=== PATIENT | male | born 1960 | race Caucasian/White ===

== ENCOUNTER 2020-11-13 16:17 | Observation (INO) ==
[2020-11-13] MEDS ORDERED: SODIUM CHLORIDE 0.9% 1000ML 1,000 ML IV ONE (17:11)
--- NOTE | 2020-11-13 17:21 | Emergency Department Note ---
Impression & Plan Acute appendicitis, Abdominal pain ED Provider Note Provider: Kale Smith MD DATE OF SERVICE: 11/13/2020 CHIEF COMPLAINT: Abdominal pain, referred HISTORY OF PRESENT ILLNESS: Patient is a 59-year-old gentleman history of BPH and bladder stones presenting here today referred by his doctor due to abdominal discomfort. Initially saw his doctor today as over the past 4 days has had some central and then more diffuse abdominal pain. States some decreased appetite initially some nausea but that is resolved. Denies fever chills. Denies chest pain or shortness of breath. States his doctor saw him today and pushed on his stomach and he had tenderness in the right lower abdomen was sent for a CT scan. Reports the CT scan showed appendicitis and sent here for further evaluation. Denies pain medication at this time and states pain is not so bad as long as he does not touch the area. Denies any trauma. States he has not eaten since 9 AM this morning. Patient denies any issues with anesthesia in the past. REVIEW OF SYSTEMS: A total of 10 review of systems was obtained and negative except as stated above in the HPI. PAST MEDICAL HISTORY: As noted above MEDICATIONS: Reviewed home medications with the patient SOCIAL HISTORY: Non-smoker, PHYSICAL EXAM: GENERAL: alert and oriented in no acute distress on stretcher Head: normocephalic and atraumatic EYES: No injection, discharge or icterus. NECK: Trachea midline. LUNGS: Airway patent. No retractions. Breath sounds clear with good air entry bilaterally. HEART: Regular rate and rhythm. No chest wall tenderness ABDOMEN: Soft some mild left-sided and upper abdominal tenderness but significant tenderness and guarding in the right lower quadrant. SKIN: Acyanotic, warm, dry, without rashes EXTREMITIES: Without swelling, tenderness or deformity NEUROLOGICAL: No focal deficits. No aphasia. No facial droop or slurred speech. EK beats per normal sinus rhythm. No PVC or PAC. No acute ST segment elevation or depression. QTC 435. Patient's laboratory studies and imaging reviewed. Differential includes Appendicitis, testicular torsion, infections, diverticulitis, UTI, obstruction, mesenteric ischemia, aortic pathology, inflammatory bowel disease, renal colic, PUD, pancreatitis, biliary pathology, hernia, volvulus, constipation, as well as other pathologies. IMPRESSION/MEDICAL DECISION MAKING: Patient presents simply as of abdominal discomfort initially central for more diffuse but significant tenderness right lower quadrant. Outpatient scan concerning for acute ascites. Basic blood work obtained. Patient declines pain medicine. Denies fever. No signs of acute kidney stones at this point on imaging or obstruction. No evidence of free air or abscess per the report. Covid testing basic labs and EKG were obtained. Low suspicion is ACS or PE. No significant right upper quadrant tenderness. Blood work without significant leukocytosis or anemia. Slight hypokalemia 3.3 noted and discussed with the patient at bedside. Believe this is incidental to his complaints today. No s ignificant transaminitis or evidence of pancreatitis based on labs. Chest x-ray appears clear. Discussed with general surgery given the CT findings and his pain and exam. Dr. Carlson from surgery was contacted and surgery team evaluate the patient bedside and consented for the OR. Per surgery recommendations Mefoxin was ordered. Negative Covid test here. Patient and his were updated at bedside. DIAGNOSIS: Acute appendicitis, abdominal pain DISPOSITION: Being evaluated by the surgery team Past Med/Surg History Medical History Hypercholesterolemia Surgical History No pertinent past surgical history Family History Father Prostate cancer Hypertension Heart disease Uncle Prostate cancer Grandmother (Paternal) Hypertension Brother Diabetes Sister Diabetes Social History Smoking Status: Never smoker Hx Alcohol Use: No Hx Substance Use: No marital status: Feels Safe at Home: Yes Allergies Allergies Allergy/AdvReac Type Severity Reaction Status Date / Time codeine AdvReac Intermediate nausea Verified 11/13/20 18:44 Home Meds Home Medications Medication Instructions Recorded Confirmed atorvastatin 40 mg PO DAILY 11/13/20 11/13/20 potassium citrate 10 meq PO BID 11/13/20 11/13/20 venlafaxine 225 mg PO DAILY 11/13/20 11/13/20 Previous Rx's Medication Instructions Recorded tamsulosin 0.4 mg capsule 0.4 mg PO DAILY #90 cap 08/21/20 Results & Data (ED) Vital Signs Vital Signs - 24 hr 11/13/20 16:30 Temperature 36.8 C Temperature Source Temporal Artery Scan Pulse Rate 74 Pulse Rhythm Regular Respiratory Rate 17 Respiratory Effort / Characteristics Non-Labored Spontaneous Respiratory Depth Normal Blood Pressure 148/99 H Blood Pressure Mean 115 Pulse Oximetry 97 Oxygen Delivery Method Room Air Sepsis Recent Fever Within 48 Hours No Sepsis New/Unexplained Change in Mental Status No Sepsis Action Taken by Nursing No Action Required Laboratory Data Result diagrams: 11/13/20 17:20 11/13/20 17:20 Lab Results 11/13/20 11/13/20 11/13/20 Range/Units 17:20 17:20 17:20 WBC 7.44 (4.8-10.8) K/uL RBC 5.36 (4.7-6.1) M/uL Hgb 16.6 (14.0-18.0) g/dL Hct 48.1 (42-52) % MCV 89.7 (80-100) fL MCH 31.0 (25-34) pg MCHC 34.5 (32-36) g/dL RDW Std Deviation 39.4 (36.4-46.3) fL RDW Coeff of Ling 12.1 (11.5-14.5) % Plt Count 271 (130-400) K/uL MPV 10.1 (7.4-10.4) fL Immature Gran % (Auto) 0.3 % Neut % (Auto) 41.0 % Lymph % (Auto) 46.8 % Rush % (Auto) 8.9 % Eos % (Auto) 2.6 % Baso % (Auto) 0.4 % Neut # (Auto) 3.06 (1.4-6.5) K/uL Lymph # (Auto) 3.48 H (1.2-3.4) K/uL Rush # (Auto) 0.66 H (0.11-0.59) K/uL Eos # (Auto) 0.19 (0-0.5) K/uL Baso # (Auto) 0.03 (0-0.2) K/uL Immature Gran # (Auto) 0.02 (0.00-0.02) K/uL PT 10.3 (9.0-12.0) Seconds INR 1.0 (0.9-1.1) APTT 27.8 (21.0-31.0) Seconds PTT Ratio 1.1 Sodium 138 (136-145) mmol/L Potassium 3.3 L (3.5-5.1) mmol/L Chloride 103 (98-107) mmol/L Carbon Dioxide 28 (21-32) mmol/L Anion Gap 7.0 (3-11) BUN 13 (7-18) mg/dl Creatinine 1.06 (0.6-1.4) mg/dl Est Cr Clr Drug Dosing 84.5 ml/min Est GFR ( Amer) 87.4 ml/min Est GFR (Non-Af Amer) 75.4 ml/min BUN/Creatinine Ratio 12.3 (10-20) Glucose 74 (70-99) mg/dl Calcium 9.5 (8.5-10.1) mg/dl Total Bilirubin 0.6 (0.2-1) mg/dl AST 17 (15-37) U/L ALT 52 (12-78) U/L Alkaline Phosphatase 134 H (45-117) U/L Total Protein 8.0 (6.4-8.2) gm/dl Albumin 4.1 (3.4-5.0) gm/dl Globulin 3.9 (2.5-4.0) gm/dl Albumin/Globulin Ratio 1.0 (0.9-2) Lipase 145 (73-393) U/L COVID-19 Eval Order SARS-CoV-2 (PCR) (Negative) 11/13/20 11/13/20 Range/Units 17:20 17:20 WBC (4.8-10.8) K/uL RBC (4.7-6.1) M/uL Hgb (14.0-18.0) g/dL Hct (42-52) % MCV (80-100) fL MCH (25-34) pg MCHC (32-36) g/dL RDW Std Deviation (36.4-46.3) fL RDW Coeff of Ling (11.5-14.5) % Plt Count (130-400) K/uL MPV (7.4-10.4) fL Immature Gran % (Auto) % Neut % (Auto) % Lymph % (Auto) % Rush % (Auto) % Eos % (Auto) % Baso % (Auto) % Neut # (Auto) (1.4-6.5) K/uL Lymph # (Auto) (1.2-3.4) K/uL Rush # (Auto) (0.11-0.59) K/uL Eos # (Auto) (0-0.5) K/uL Baso # (Auto) (0-0.2) K/uL Immature Gran # (Auto) (0.00-0.02) K/uL PT (9.0-12.0) Seconds INR (0.9-1.1) APTT (21.0-31.0) Seconds PTT Ratio Sodium (136-145) mmol/L Potassium (3.5-5.1) mmol/L Chloride (98-107) mmol/L Carbon Dioxide (21-32) mmol/L Anion Gap (3-11) BUN (7-18) mg/dl Creatinine (0.6-1.4) mg/dl Est Cr Clr Drug Dosing ml/min Est GFR ( Amer) ml/min Est GFR (Non-Af Amer) ml/min BUN/Creatinine Ratio (10-20) Glucose (70-99) mg/dl Calcium (8.5-10.1) mg/dl Total Bilirubin (0.2-1) mg/dl AST (15-37) U/L ALT (12-78) U/L Alkaline Phosphatase (45-117) U/L Total Protein (6.4-8.2) gm/dl Albumin (3.4-5.0) gm/dl Globulin (2.5-4.0) gm/dl Albumin/Globulin Ratio (0.9-2) Lipase (73-393) U/L COVID-19 Eval Order Covid19 at [facility] SARS-CoV-2 (PCR) NEGATIVE (Negative) Administered Medications Cefoxitin Sodium (Mefoxin) 2,000 mg in 60 mls @ 100 mls/hr IV NOW STA Stop: 11/13/20 19:13 Last Admin: 11/13/20 18:54 Dose: 100 mls/hr Documented by: [id number] Discontinued Medications Sodium Chloride (Nss 1000ml) 1,000 mls @ 999 mls/hr IV .Q1H1M ONE Stop: 11/13/20 18:11 Last Infusion: 11/13/20 18:55 Dose: 0 mls/hr Documented by: [id number] Admin: 11/13/20 17:26 Dose: 999 mls/hr Documented by: [id number] Imaging Data Radiologist's Impression: Chest X-Ray 11/13/20 17:24 XR chest 1V portable HISTORY: Generalized abdominal pain. COMPARISON: Chest 04/24/2014. FINDINGS: The lungs are clear. Cardiac silhouette is normal in size. No pleural effusions. No pneumothorax. IMPRESSION: No acute process. ACT 112: Negative or not required by law. Electronically signed by: Gerald Curry M.D. 11/13/2020 6:07 PM Discharge Plan Visit Data Chief Complaint: Abdominal Pain Stated Complaint: R SIDE ADB PAIN- + CT SCAN PER DOC [facility] ED Provider: Kale Smith Discharge Problem: Acute appendicitis, Abdominal pain Patient Disposition: Being Evaluated by Surgeon Forms Stand Alone Forms: [employer] Prescriptions Prescriptions: No Action tamsulosin 0.4 mg capsule 0.4 mg PO DAILY Qty: 90 RF: 3 atorvastatin 40 mg tablet 40 mg PO DAILY RF: 0 venlafaxine 75 mg capsule,extended release 24hr 225 mg PO DAILY RF: 0 potassium citrate 10 mEq (1,080 mg) tablet extended release 10 meq PO BID RF: 0 Referrals Referrals: Harjeet Peralta MD [Primary Care Provider] - Discharge Problem: Acute appendicitis Qualifiers: Acute appendicitis type: with localized peritonitis Appendicitis gangrene prese nce: unspecified whether gangrene present Appendicitis perforation presence: without perforation Appendicitis abscess presence: without abscess Qualified Code(s): K35.30 - Acute appendicitis with localized peritonitis, without perforation or gangrene Abdominal pain Qualifiers: Abdominal location: right lower quadrant Qualified Code(s): R10.31 - Right lower quadrant pain
[2020-11-13 17:45] LABS: Basophils # (auto) 0.03 K/uL (0-0.2); Basophils % (auto) 0.4 %; Eosinophils # (auto) 0.19 K/uL (0-0.5); Eosinophils % (auto) 2.6 %; Hematocrit (blood only) 48.1 % (42-52); Hemoglobin 16.6 g/dL (14.0-18.0); Immature Granulocytes # (auto) 0.02 K/uL (0.00-0.02); Immature Granulocytes % (auto) 0.3 %; Lymphocytes # (auto) 3.48 K/uL (1.2-3.4); Lymphocytes % (auto) 46.8 %; Mean Corpuscular Hgb Conc 34.5 g/dL (32-36); Mean Corpuscular Volume 89.7 fL (80-100); Mean Platelet Volume 10.1 fL (7.4-10.4); Monocytes # (auto) 0.66 K/uL (0.11-0.59); Monocytes % (auto) 8.9 %; Neutrophils # (auto) 3.06 K/uL (1.4-6.5); Platelet Count 271 K/uL (130-400); RDW Coefficient of Variation 12.1 % (11.5-14.5); RDW Standard Deviation 39.4 fL (36.4-46.3); Red Blood Count 5.36 M/uL (4.7-6.1); White Blood Count 7.44 K/uL (4.8-10.8)
[2020-11-13 18:04] LABS: Partial Thromboplastin Ratio 1.1; Partial Thromboplastin Time 27.8 Seconds (21.0-31.0); Prothrombin Time 10.3 Seconds (9.0-12.0)
[2020-11-13 18:06] LABS: Albumin Level 4.1 gm/dl (3.4-5.0); BUN Creatinine Ratio 12.3 (10-20); Calcium 9.5 mg/dl (8.5-10.1); Creatinine Clr Calc Pharmacy 84.5 ml/min; Est GFR (African American) 87.4 ml/min; Est GFR (Non-African American) 75.4 ml/min; Potassium 3.3 mmol/L (3.5-5.1)
--- NOTE | 2020-11-13 18:08 | XRay Report ---
XR chest 1V portable HISTORY: Generalized abdominal pain. COMPARISON: Chest 04/24/2014. FINDINGS: The lungs are clear. Cardiac silhouette is normal in size. No pleural effusions. No pneumot horax. IMPRESSION: No acute process. ACT 112: Negative or not required by law. Electronically signed by: Gerald Curry M.D. 11/13/2020 6:07 PM
[2020-11-13 18:09] LABS: Bilirubin,Total 0.6 mg/dl (0.2-1); Globulin 3.9 gm/dl (2.5-4.0)
[2020-11-13] MEDS ORDERED: cefOXitin 2,000 MG/60 ML BAG IV STA (18:38)
[2020-11-13] MEDS ORDERED: EPINEPHrine INJ 1 MG/ML AMP ONE (18:55)
[2020-11-13] MEDS ORDERED: BUPIVACAINE 0.25% 30 ML VIAL ONE (18:55)
--- NOTE | 2020-11-13 19:16 | History & Physical Report ---
Date of Service November 13, 2020 Assessment & Plan (1) Acute appendicitis: Due to the patient's appendicitis we will proceed as follows: We will proceed with laparoscopic, possible open appendectomy this evening. I have discussed the risks, benefits, and alternatives with the patient and is dangelo ling to proceed. Informed consent has been obtained. The patient has received antibiotics in the form of cefoxitin. We will keep the patient n.p.o. until after surgery General recommendations will be made based on the patient's operative findings as well as recovery from said surgery History of Present Illness Chief Complaint: Abdominal pain Primary Care Provider: Harjeet Peralta MD This 59-year-old male who says he has been having abdominal pain in his lower abdomen for approximately 4 to 5 days. He says the pain does not have any modifying factors and does not radiate. He has not had any associated nausea vomiting. He has not had any fevers, shakes, or chills. He has never had any prior abdominal surgeries. He felt as though his pain was due to constipation so he attempted to alter his diet by eating more fruits and vegetables but this was unsuccessful at relieving the pain. As the pain persisted he saw his primary care physician today who ordered a CAT scan that showed findings concerning for an early appendicitis and he was therefore referred to the emergency department. The emergency department the patient did have labs performed which I independently reviewed. CBC revealed his white blood cell count, hemoglobin, he matocrit, and platelet count are all within normal range. Coagulation studies were all noted to be normal. The patient's sodium was 138. His potassium was 3.3. BUN and creatinine were noted to be within normal range. A Covid test was performed and was noted to be negative. Patient also had a chest x-ray which I did telemetry reviewed and showed no evidence of CHF or pneumonia. He also had an outpatient CT scan that was previously mentioned. I independently reviewed the study as well. The study did show no evidence of bowel obstruction or free air. There was enlargement of his appendix with a diameter of approximately 11mm. This was felt to be suspicious for an early appendicitis. There is no evidence of perforation. In addition the patient did have an EKG that showed normal sinus rhythm without changes indicative of ischemia. I did question patient about his daily activities and he says that he can easily walk a mile without any chest pain or shortness of breath. He is lifetime non- smoker. At the time of my interview the patient was resting comfortably in bed in minimal pain in no distress. Allergies Allergy/AdvReac Type Severity Reaction Status Date / Time codeine AdvReac Intermediate nausea Verified 11/13/20 18:44 Home Medications Medication Instructions Recorded Confirmed Type tamsulosin 0.4 mg capsule 0.4 mg PO DAILY #90 cap 08/21/20 11/13/20 Rx atorvastatin 40 mg PO DAILY 11/13/20 11/13/20 History potassium citrate 10 meq PO BID 11/13/20 11/13/20 History venlafaxine 225 mg PO DAILY 11/13/20 11/13/20 History Past Med/Surg History Medical History Hypercholesterolemia Surgical History No pertinent past surgical history Family History Father Prostate cancer Hypertension Heart disease Uncle Prostate cancer Grandmother (Paternal) Hypertension Brother Diabetes Sister Diabetes Social History Smoking Status: Never smoker Hx Alcohol Use: No Hx Substance Use: No marital status: Feels Safe at Home: Yes Review of Systems Constitutional: no fever and no chills Eyes: no diplopia Ear, Nose, Mouth, Throat: no ear pain Respiratory: no cough and no dyspnea Cardiovascular: no chest pain Gastrointestinal: + abdominal pain; no nausea and no vomiting Genitourinary: no dysuria Musculoskeletal: no back pain Integumentary: no rash Neurologic: no generalized weakness Physical Exam Constitutional: well developed and well nourished; no acute distress Eyes: Wears glasses ENMT: Ears: no hearing impairment Neck: trachea midline Respiratory: normal respiratory effort, lungs clear to auscultation Cardiovascular: Rate/Rhythm: regular rate and regular rhythm Gastrointestinal (Abdomen): Abdomen is soft with positive bowel sounds. There is no rebound tenderness or guarding. The patient did have pain with deep palpation in the right lower quadrant over McBurney's point. Musculoskeletal: No calf tenderness Skin: no rashes, warm and dry Neurologic: moves all extremities Psychiatric: A+Ox3, euthymic affect Results & Data Results & Data ([facility]) Vital Signs (Past 12 Hours) Vital Signs Temp Pulse Resp BP Pulse Ox 11/13/20 16:30 36.8 C 74 17 148/99 H 97 Supervising Physician Co-Signing Physician Notes I personally saw and evaluated the patient with Amadeo Escobar PA-C and agree with the assessment and plan 59 yo male with acute appendicitis -NPO -Mefoxin -To OR tonight for laparoscopic appendectomy, possible open -Consent obtained, risks discussed including bleeding, infection, leak, injury to nearby structures, abscess PG Care Time/CCT Total # of Minutes Spent Total Time Spent with Patient: Total time spent is greater than 50% in coordination of care (as documented) at patient's floor/unit and/or counseling patient: Coding Level of Care Code 77303 OBS Care - Level 3 Diagnoses Acute appendicitis K35.30 Acute appendicitis type: with localized peritonitis Appendicitis abscess presence: without abscess Appendicitis gangrene presence: unspecified whether gangrene present Appendicitis perforation presence: without perforation (1) Acute appendicitis Acute appendicitis type: with localized peritonitis Appendicitis abscess presence: without abscess Appendicitis gangrene presence: unspecified whether gangrene present Appendicitis perforation presence: without perforation Qualified Code(s): K35.30 - Acute appendicitis with localized peritonitis, without perforation or gangrene
--- NOTE | 2020-11-13 19:20 | Anesthesiology Consultation ---
Date of Service November 13, 2020 Assessment & Plan Chart Review Chart Review: Acceptable Risk for Surgery and Patient NOT seen in Pre Admission Testing Consults Requested none ASA [id number] Proposed Anesthesia Anesthesia Type: General History Surgery Operation Date: 11/13/20 19:45 Proposed Procedures p Laparoscopic Appendectomy, Possible Open(Not Applicable) - Antolin Carlson, Height/Weight Height: 5 ft 10 in Weight: 94.6 kg Allergies Allergy/AdvReac Type Severity Reaction Status Date / Time codeine AdvReac Intermediate nausea Verified 11/13/20 18:44 Medications Home Medications Medication Instructions Recorded Confirmed Last Taken tamsulosin 0.4 mg capsule 0.4 mg PO DAILY #90 cap 08/21/20 11/13/20 11/13/20 atorvastatin 40 mg PO DAILY 11/13/20 11/13/20 11/13/20 potassium citrate 10 meq PO BID 11/13/20 11/13/20 11/13/20 08:00 venlafaxine 225 mg PO DAILY 11/13/20 11/13/20 11/13/20 08:00 Past Medical History Medical History Hypercholesterolemia Exercise / Class Metabolic Activity II 4-5 Yardwork/Stairs/Walk up hill Past Family History Family History Father Prostate cancer Hypertension Heart disease Uncle Prostate cancer Grandmother (Paternal) Hypertension Brother Diabetes Sister Diabetes Past Surgical History Surgical History No pertinent past surgical history Past Anesthesia History No Hx of Anesthesia Complications and No Family Hx of Anesthesia Complications History of PONV No Hx of PONV and No Hx of Motion Sickness Social History Smoking Status: Never smoker Hx Alcohol Use: No Hx Substance Use: No Physical Exam Vital Signs Last Vital Signs Temp 36.8 C 11/13/20 16:30 Pulse 74 11/13/20 16:30 Resp 17 11/13/20 16:30 BP 148/99 H 11/13/20 16:30 Pulse Ox 97 11/13/20 16:30 Testing Laboratory Results 11/13/20 17:20 11/13/20 17:20 PT 10.3 Seconds (9.0-12.0) 11/13/20 17:20 INR 1.0 (0.9-1.1) 11/13/20 17:20 APTT 27.8 Seconds (21.0-31.0) 11/13/20 17:20 Chest X-Ray Date: 11/13/20 Findings: + NAD Echocardiogram Date: 04/24/14 EF: 55-60% LV Function: normal RWMA: + none Other Findings: + LVH (mild) and + diastolic dysfunction (grade 1) Valvular Disease: + no significant valvular disease Other Testing 04/24/14-carotid U/S-minimal plaque
[2020-11-13] MEDS ORDERED: PROPOFOL IV EMULSION 10 MG/ML 20 ML VIAL IV ONE (20:20)
[2020-11-13] MEDS ORDERED: fentaNYL citrate 100 MCG/2 ML VIAL ONE ×2 (20:22)
[2020-11-13] MEDS ORDERED: SUCCINYLCHOLINE 100MG/5ML SYR IV ONE (20:22)
[2020-11-13] MEDS ORDERED: MIDAZOLAM HCL 1 MG/ML 2ML VIAL ONE (20:23)
[2020-11-13] MEDS ORDERED: BACITRACIN OINT 15 GM TUBE ONE (20:58)
--- NOTE | 2020-11-13 21:18 | Post Operative Brief Note ---
PG Immediate Post Op with CF Date of Surgery November 13, 2020 Pre & Post Diagnosis Operation Date: 11/13/20 19:45 Pre-Op Diagnosis: Acute appendicitis Post-Op Diagnosis: Acute non perforated appendicitis I identified the patient and participated in the time-out.: Yes Procedure Operation Date: 11/13/20 19:45 Actual Procedures p Laparoscopic Appendectomy, Possible Open(Not Applicable) - Antolin Carlson DO Surgeon Antolin Carlson DO Blood Collector Amadeo Escobar PA-C Estimated Blood Loss 5 Findings Consistent with Post-Op Diagnosis Specimens Specimen Description: A. Appendix Drains Patrick Catheter (Inserted by Marito Escobar without difficulty at 2039 with a 16fr, 10cc patrick.) Anesthesia Type General Complications none Disposition Disposition: Recovery Room
[2020-11-13] MEDS ORDERED: GLYCOPYRROLATE 0.2 MG/ML VIAL ONE (21:20)
--- NOTE | 2020-11-13 21:21 | Operative Report ---
PG Post Operative Report Pre & Post Diagnosis Operation Date: 11/13/20 19:45 Pre-Op Diagnosis: Acute appendicitis Post-Op Diagnosis: Acute non perforated appendicitis I identified the patient and participated in the time-out.: Yes Procedure Operation Date: 11/13/20 19:45 Actual Procedures p Laparoscopic Appendectomy, Possible Open(Not Applicable) - Antolin Carlson DO Surgeon Antolin Carlson DO Production Packager Amadeo Escobar PA-C Estimated Blood Loss 5 Findings Consistent with Post-Op Diagnosis Nonperforated appendicitis Specimens Appendix to pathology Drains None Anesthesia Type General Complications none Disposition Disposition: Recovery Room Indications 59 yo male with acute appendicitis Description of Procedure The patient was brought to the OR and placed in the supine position and SCD's placed. At this time he underwent general endotracheal anesthesia without incident. At this time a Schwartz catheter was placed under sterile conditions. His abdomen was prepped and draped in the usual sterile fashion. He was given appropriate pre-operative antibiotics. A timeout was called, the procedure was verified as Laparoscopic appendectomy, possible open. Surgical, anesthesia and nursing teams agreed and the procedure was begun. After injection of 0.25% Marcaine with epinephrine, a supraumbilical incision was made using a #11 blade scalpel and carried down to the fascia with a hemostat. The abdomen was then elevated with towel clamps and entered using the Veress needle confirming pos ition using the saline drop test. Pneumoperitoneum was established and 5mm trocar was placed. Laparoscope was introduced. No injury was seen from our entrance to the abdomen. At this time a 5mm suprapubic port and 12mm LLQ port were placed under direct visualization. The patient was placed in Trendelenburg and rotated to the left. At this time the appendix was visualized and the tip was freed and elevated toward the abdominal wall. The appendix appeared inflamed, dilated and edematous. A window was created in the mesoappendix at the base of the appendix. A 45mm purple load stapler was then fired across the base of the appendix which appeared healthy. The mesoappendix was then taken using Harmonic device. The appendix was then placed in an Endocatch bag and removed through the LLQ port site. Staple line was inspected and was intact. Hemostasis was complete. The 12 mm port was then closed at the fascial level using a 0 Vicryl suture using the suture passer. All ports were removed under direct visualization and no bleeding was noted. The abdomen was desufflated and the skin was closed using 4-0 Monocryl in a subcuticular fashion. Sterile dressings were applied. Schwartz catheter was removed. The patient was then awakened from anesthesia having remained stable throughout the entire case and transported to PACU. All needle and sponge counts were correct x 2. The physician's assistant bookkeeper was present and scrubbed throughout the entire case. He was essential in positioning, prepping and draping the patient, driving the laparoscope, retraction and exposure, closure of the incision and placement of the dressings. I attest to the content of the Intraoperative Record and any orders documented therein. Any exceptions are noted below.
[2020-11-13] MEDS ORDERED: DEXAMETHASONE SOD INJ 4 MG/ML VIAL ONE (21:24)
[2020-11-13] MEDS ORDERED: ONDANSETRON INJ 2 MG/ML 2 ML VIAL ONE (21:25)
[2020-11-13] MEDS ORDERED: NEOSTIGMINE METHYLSULFATE 1 MG/ML 10ML VIAL ONE (21:35)
[2020-11-13] MEDS ORDERED: HYDROmorphone INJ 1 MG/ML SYRINGE IV PRN (21:43)
[2020-11-13] MEDS ORDERED: NALOXONE HCL 0.4 MG/1 ML VIAL/CARP IV PRN (21:43)
[2020-11-13] MEDS ORDERED: PROMETHAZINE HCL 12.5 MG in SODIUM CHLORIDE 0.9% 50 ML IV PRN (21:43)
[2020-11-13] MEDS ORDERED: ATROPINE SULFATE 0.1 MG/ML 10ML SYR IV PRN (21:43)
[2020-11-13] MEDS ORDERED: ePHEDrine sulfate 50 MG/ML AMP IV PRN (21:43)
[2020-11-13] MEDS ORDERED: ONDANSETRON INJ 2 MG/ML 2 ML VIAL IV PRN ×2 (21:43→23:26)
[2020-11-13] MEDS ORDERED: FLUMAZENIL 0.1 MG/1 ML 10 ML VIAL IV PRN (21:43)
[2020-11-13] MEDS ORDERED: LABETALOL HCL IV 5 MG/ML 20ML IV PRN (21:43)
[2020-11-13] MEDS ORDERED: fentaNYL citrate 100 MCG/2 ML VIAL IV PRN (21:43)
[2020-11-13] MEDS ORDERED: KETOROLAC 30 MG/ML VIAL IV PRN (21:43)
[2020-11-13] MEDS ORDERED: KETOROLAC 30 MG/ML VIAL ONE (21:49)
--- NOTE | 2020-11-13 22:11 | Anesthesiology Progress Note ---
Date of Service November 13, 2020 Anesthesia Post Procedure Vital Signs Vital Signs: Temp Pulse Pulse Pulse Resp BP BP 11/13/20 22:00 57 L 15 119/79 11/13/20 21:50 57 L 16 136/82 11/13/20 21:40 36.2 C L 59 L 15 133/84 11/13/20 19:35 36.4 C L 66 18 139/91 11/13/20 16:30 36.8 C 74 17 148/99 H Pulse Ox 11/13/20 22:00 95 11/13/20 21:50 100 11/13/20 21:40 100 11/13/20 19:35 97 11/13/20 16:30 97 Pain Intensity Abdomen: Pain Intensity: 3 Transfer of Care Handoff Completed per policy Notes Mental Status: alert / awake / arousable Patient Amnestic to Procedure: Yes Nausea / Vomiting: adequately controlled Pain: adequately controlled Airway Patency, RR, SpO2: stable & adequate BP & HR: stable & adequate Hydration State: stable & adequate Anesthetic Complications: no major complications apparent
[2020-11-13] MEDS ORDERED: MoRPHine SULFATE 4 MG/ML 1 ML CARP\\VIAL IV PRN (23:26)
[2020-11-14] MEDS: ACETAMINOPHEN 1,000 MG/100 ML VIAL IV SCH ×3 (00:30→16:44)
[2020-11-14] MEDS: LACTATED RINGER'S 1,000 ML IV SCH ×2 (00:30→19:50)
[2020-11-14] MEDS ORDERED: SODIUM CHLORIDE 0.9% 1000ML 250 ML IV ONE (06:28)
--- NOTE | 2020-11-14 06:49 | Communication Note ---
Date of Service: November 14, 2020 Notified by RN that upon sitting up pt. had some lightheadedness. He was noted to be hypotensive with BP in 70s. Repeat BP revealed BP was in 90s. HR noted to be 116. RN noted that symptoms resolved after a few minutes. She notes pt. had a uneventful night. As pt. has not had much in the way of oral intake his hypotension, tachycardia, and symptoms may be due to hypovolemia. Rashawn order a 250 cc bolus of NSS and check CBC this am.
[2020-11-14 07:12] LABS: Hematocrit (blood only) 35.9 % (42-52); Hemoglobin 12.4 g/dL (14.0-18.0); Immature Granulocytes # (auto) 0.01 K/uL (0.00-0.02); Immature Granulocytes % (auto) 0.1 %; Mean Corpuscular Hemoglobin 30.5 pg (25-34); Mean Corpuscular Hgb Conc 34.5 g/dL (32-36); Mean Corpuscular Volume 88.2 fL (80-100); Monocytes # (auto) 0.27 K/uL (0.11-0.59); Monocytes % (auto) 3.9 %; Neutrophils # (auto) 6.02 K/uL (1.4-6.5); Platelet Count 231 K/uL (130-400); RDW Coefficient of Variation 11.9 % (11.5-14.5); RDW Standard Deviation 38.2 fL (36.4-46.3); Red Blood Count 4.07 M/uL (4.7-6.1)
--- NOTE | 2020-11-14 07:49 | Surgery Progress Note ---
Date of Service November 14, 2020 Assessment & Plan (1) S/P laparoscopic appendectomy: -Hgb is 12.4, will continue IVF and repeat CBC at 1PM -Keep on clears -Will monitor CBC and his hypovolemic symptoms, order 1L NSS bolus Admission and Anticipated Discharge Date Admission Date: November 13, 2020 Subjective Pt seen and examined. Had a hypotensive episode overnight. Was tachycardic to 116. No N/V. Pain controlled. Physical Exam Constitutional: well developed; not ill appearing Gastrointestinal (Abdomen): Inspection/Auscultation: abdomen not distended Percussion/Palpation: + abdomen tender (appropriately TTP) and abdomen soft; no guarding Dressings c/d/i Results & Data ([facility]) Vital Signs (Past 12 Hours) Vital Signs Temp Pulse Pulse Resp BP BP Pulse Ox 11/14/20 07:13 36.5 C 102 H 16 95/67 L 98 11/14/20 06:30 99 H 90/65 L 11/14/20 06:27 36.4 C L 104 H 16 77/57 L 86/63 L 94 11/14/20 01:50 36.3 C L 85 15 105/70 93 11/14/20 00:54 36.3 C L 80 15 107/70 93 11/13/20 23:45 36.5 C 68 15 109/69 93 11/13/20 23:15 36.4 C L 67 16 113/70 94 11/13/20 22:45 36.5 C 58 L 16 121/77 96 11/13/20 22:20 58 L 15 121/73 95 11/13/20 22:10 36.2 C L 58 L 18 114/77 95 11/13/20 22:00 57 L 15 119/79 95 11/13/20 21:50 57 L 16 136/82 100 11/13/20 21:40 36.2 C L 59 L 15 133/84 100 Hgb 12.4 down from 16.6 PG Care Time/CCT Total # of Minutes Spent Total Time Spent with Patient: Total time spent is greater than 50% in coordination of care (as documented) at patient's floor/unit and/or counseling patient: Coding Level of Care Code None Diagnoses S/P laparoscopic appendectomy Z90.49
[2020-11-14] MEDS ORDERED: SODIUM CHLORIDE 0.9% 1000ML 1,000 ML IV ONE (07:50)
[2020-11-14] MEDS: oxyCODONE HCL SOLN 5 MG/5 ML UDC PO PRN ×2 (09:11→17:22)
[2020-11-14] MEDS: TAMSULOSIN HCL 0.4 MG CAP PO SCH ×2 (09:12→10:45)
[2020-11-14] MEDS: ATORVASTATIN 40 MG TAB PO SCH (09:12)
[2020-11-14] MEDS: POTASSIUM CITRATE 10 MEQ TAB PO SCH ×2 (09:12→19:49)
[2020-11-14] MEDS: VENLAFAXINE HCL XR 75 MG CAPXR PO SCH (09:12)
[2020-11-14] MEDS ORDERED: Nursing to Pharmacy Communication SCH (10:45)
[2020-11-14 13:27] LABS: Hematocrit (blood only) 34.9 % (42-52); Hemoglobin 11.8 g/dL (14.0-18.0); Immature Granulocytes # (auto) 0.02 K/uL (0.00-0.02); Immature Granulocytes % (auto) 0.2 %; Lymphocytes # (auto) 1.15 K/uL (1.2-3.4); Lymphocytes % (auto) 12.6 %; Mean Corpuscular Hemoglobin 30.1 pg (25-34); Mean Corpuscular Hgb Conc 33.8 g/dL (32-36); Mean Platelet Volume 10.2 fL (7.4-10.4); Monocytes # (auto) 0.56 K/uL (0.11-0.59); Monocytes % (auto) 6.1 %; Neutrophils # (auto) 7.38 K/uL (1.4-6.5); Neutrophils % (auto) 81.1 %; Platelet Count 256 K/uL (130-400); RDW Coefficient of Variation 12.2 % (11.5-14.5); Red Blood Count 3.92 M/uL (4.7-6.1); White Blood Count 9.11 K/uL (4.8-10.8)
[2020-11-14] MEDS ORDERED: diazePAM 2 MG TABLET PO ONE (13:45)
[2020-11-14] MEDS ORDERED: TAMSULOSIN HCL 0.4 MG CAP PO SCH (21:00)
[2020-11-15 06:39] LABS: Basophils # (auto) 0.01 K/uL (0-0.2); Basophils % (auto) 0.1 %; Eosinophils # (auto) 0.02 K/uL (0-0.5); Eosinophils % (auto) 0.2 %; Hematocrit (blood only) 28.4 % (42-52); Hemoglobin 9.5 g/dL (14.0-18.0); Immature Granulocytes # (auto) 0.02 K/uL (0.00-0.02); Immature Granulocytes % (auto) 0.2 %; Lymphocytes # (auto) 1.48 K/uL (1.2-3.4); Lymphocytes % (auto) 14.7 %; Mean Corpuscular Hemoglobin 30.1 pg (25-34); Mean Corpuscular Hgb Conc 33.5 g/dL (32-36); Mean Corpuscular Volume 89.9 fL (80-100); Monocytes # (auto) 0.96 K/uL (0.11-0.59); Monocytes % (auto) 9.5 %; Neutrophils # (auto) 7.58 K/uL (1.4-6.5); Neutrophils % (auto) 75.3 %; Platelet Count 201 K/uL (130-400); RDW Coefficient of Variation 12.2 % (11.5-14.5); RDW Standard Deviation 39.5 fL (36.4-46.3); Red Blood Count 3.16 M/uL (4.7-6.1); White Blood Count 10.07 K/uL (4.8-10.8)
[2020-11-15] MEDS: LACTATED RINGER'S 1,000 ML IV SCH (08:52)
[2020-11-15] MEDS: ATORVASTATIN 40 MG TAB PO SCH (08:59)
[2020-11-15] MEDS: POTASSIUM CITRATE 10 MEQ TAB PO SCH (08:59)
[2020-11-15] MEDS: VENLAFAXINE HCL XR 75 MG CAPXR PO SCH (08:59)
--- NOTE | 2020-11-15 10:39 | Surgery Progress Note ---
Date of Service November 15, 2020 Assessment & Plan (1) S/P laparoscopic appendectomy: POD#2 laparoscopic appendectomy Hbg today 9.5 (11.8), today's VSS Patient overall feeling better than yesterday so far; tolerating a diet, + gas Will continue to monitor Hbg and obtain a T&S to have on file Continue current management for now Admission and Anticipated Discharge Date Admission Date: November 13, 2020 Supervising Physician Co-Signing Physician Notes I personally saw and evaluated the patient with Lor Curtis PA-C and agree with the assessment and plan 59 yo male POD#2 laparoscopic appendectomy -His vitals have been stable and he is feeling better today -Passing gas and tolerating diet -Hgb did drop, but has been getting fluids -Ok to d/c home today with follow up in 2 weeks Subjective Patient says he is feeling better today than yesterday. The pain is still present in the bilateral lower abdomen, but improved. He is tolerating a regular diet, no nausea/vomiting. Says he is passing flatus. Voiding okay. Physical Exam Physical Exam: awake/alert Constitutional: well developed and well nourished; no acute distress Respiratory: normal respiratory effort Gastrointestinal (Abdomen): Inspection/Auscultation: + abdominal surgical incision (c/d/i) Percussion/Palpation: + abdomen tender (generalized ttp) and abdomen soft Results & Data ([facility]) Vital Signs (Past 12 Hours) Vital Signs Temp Pulse Resp BP Pulse Ox 11/15/20 07:39 36.7 C 93 H 18 113/62 91 11/15/20 01:33 36.4 C L 100 H 16 106/68 93 PG Care Time/CCT Total # of Minutes Spent Total Time Spent with Patient: Total time spent is greater than 50% in coordin ation of care (as documented) at patient's floor/unit and/or counseling patient: Coding Level of Care Code None Diagnoses S/P laparoscopic appendectomy Z90.49
[2020-11-15 13:03] LABS: Basophils # (auto) 0.01 K/uL (0-0.2); Basophils % (auto) 0.1 %; Eosinophils # (auto) 0.02 K/uL (0-0.5); Eosinophils % (auto) 0.2 %; Hematocrit (blood only) 27.3 % (42-52); Hemoglobin 9.5 g/dL (14.0-18.0); Immature Granulocytes # (auto) 0.02 K/uL (0.00-0.02); Immature Granulocytes % (auto) 0.2 %; Lymphocytes # (auto) 1.82 K/uL (1.2-3.4); Lymphocytes % (auto) 19.1 %; Mean Corpuscular Hemoglobin 30.6 pg (25-34); Mean Corpuscular Hgb Conc 34.8 g/dL (32-36); Mean Corpuscular Volume 88.1 fL (80-100); Mean Platelet Volume 9.9 fL (7.4-10.4); Monocytes # (auto) 0.88 K/uL (0.11-0.59); Monocytes % (auto) 9.2 %; Neutrophils % (auto) 71.2 %; Platelet Count 200 K/uL (130-400); RDW Coefficient of Variation 12.4 % (11.5-14.5); RDW Standard Deviation 39.7 fL (36.4-46.3); White Blood Count 9.55 K/uL (4.8-10.8)
--- NOTE | 2020-11-16 05:31 | Electrocardiogram Report ---
Test Reason : Blood Pressure : / mmHG Vent. Rate : 064 BPM Atrial Rate : 064 BPM P-R Int : 158 ms QRS Dur : 114 ms QT Int : 422 ms P-R-T Axes : 042 060 058 degrees QTc Int : 435 ms Normal sinus rhythm Normal ECG When compared with ECG of 25-APR-2014 06:37, No significant change was found Confirmed by Michael Diaz ([id number]) on 11/16/2020 5:31:32 AM Referred By: Harjeet Peralta Confirmed By:Michael Diaz
--- NOTE | 2020-11-19 09:45 | Discharge Summary ---
Date of Service November 19, 2020 Admission HPI Per Admitting Provider This 59-year-old male who says he has been having abdominal pain in his lower abdomen for approximately 4 to 5 days. He says the pain does not have any modifying factors and does not radiate. He has not had any associated nausea vomiting. He has not had any fevers, shakes, or chills. He has never had any prior abdominal surgeries. He felt as though his pain was due to constipation so he attempted to alter his diet by eating more fruits and vegetables but this was unsuccessful at relieving the pain. As the pain persisted he saw his primary care physician today who ordered a CAT scan that showed findings conc erning for an early appendicitis and he was therefore referred to the emergency department. The emergency department the patient did have labs performed which I independently reviewed. CBC revealed his white blood cell count, hemoglobin, hematocrit, and platelet count are all within normal range. Coagulation studies were all noted to be normal. The patient's sodium was 138. His potassium was 3.3. BUN and creatinine were noted to be within normal range. A Covid test was performed and was noted to be negative. Patient also had a chest x-ray which I did telemetry reviewed and showed no evidence of CHF or pneumonia. He also had an outpatient CT scan that was previously mentioned. I independently reviewed the study as well. The study did show no evidence of bowel obstruction or free air. There was enlargement of his appendix with a diameter of approximately 11mm. This was felt to be suspicious for an early appendicitis. There is no evidence of perforation. In addition the patient did have an EKG that showed normal sinus rhythm without changes indicative of ischemia. I did question patient about his daily activities and he says that he can easily walk a mile without any chest pain or shortness of breath. He is lifetime non- smoker. At the time of my interview the patient was resting comfortably in bed in minimal pain in no distress. Principal Diagnosis acute appendicitis Discharge Exam awake/alert Constitutional well developed and well nourished; no acute distress Gastrointestinal (Abdomen) Inspection/Auscultation: + abdominal surgical incision (c/d/i) Percussion/Palpation: + abdomen tender (some expected tenderness to palpation natasha-incisionally) and abdomen soft Discharge Data Allergies Allergy/AdvReac Type Severity Reaction Status Date / Time codeine AdvReac Intermediate nausea Verified 11/13/20 18:44 Beef Containing Products AdvReac Verified 11/14/20 14:03 beef derived (bovine) AdvReac Verified 11/14/20 14:03 Consultations 11/13/20 18:30 Consult General Surgery Routine 11/13/20 18:38 ED Decision to Admit Stat Procedures Performed Operation Date: 11/13/20 19:45 Actual Procedures p Laparoscopic Appendectomy - Antolin Carlson, Hospital Course (1) Acute appendicitis: This is a 59yF who presented to the [facility] ED on 11/13/20 with complaints of abdominal pain. He underwent an outpatient CT scan that revealed findings consistent with acute appendicitis and he was instructed to come into the ER for evaluation. Patient was made NPO with IVF and started on pre-op abx. He was taken to the OR on 6/ and underwent a laparoscopic appendectomy with Dr. Carlson. Patient tolerated the procedure well, see op note for full details. The patient recovered in the PACU and was transferred to the med/surg unit in stable condition. Overnight into the AM of POD#1 the patient had an episode of lightheadedness and hypotension. He was given a 250cc and 1L IVF bolus with improvement. Labs obtained and showed a hbg drop of 12.4 from 16. Patient was monitored closely and vitals improved with resuscitation and time. A repeat Hbg was obtained in the afternoon and was 11.8. Patient was started on clear liquids of which he tolerated. Pain managed with prn medications. On POD#2 hbg 9.5, but this was also in the setting of patient receiving fluids. Patient reported feeling overall improvement in his symptoms and pain better controlled. Diet was advanced of which he tolerated well. A repeat hbg in the afternoon returned stable at 9.5. Patient continued to feel well and vitals stable. He was deemed stable for discharge to home on 11/15/20 with instructions to follow up in clinic within 1-[address] Carlson. Total Time Total Time Spent Total Time Spent (In Minutes): 15 Discharge Plan Discharge Items Patient Disposition: Home - Self-Care Reason For Visit: APPY Discharge Diagnosis: laparoscopic appendectomy Activity: Per Instructions section Lifting: No more than 10 pounds Bathing Comment: may shower; no soaking in tubs/pools Exercise/Sports: Wait until after follow-up appointment Driving/Machine Use: no driving while taking narcotics for pain Non-emergency contact: Surgeon Call non-emergency contact if: you have any medication questions, your symptoms worsen, your pain is not controlled, your pain is worsening, your pain is u nusual for you, you have a fever, your temperature is above 101.5, your wound has increased redness, your wound has increased drainage and your wound pain has increased Follow-up/Referrals: Antolin Carlson DO [Physician] - 11/21/20 2:00 pm (Please call to schedule follow up in clinic within 1-2 weeks) Harjeet Peralta MD [Primary Care Provider] - Diet: Regular Addtl Attending Provider Instructions: You may purchase Tylenol and/or Ibuprofen over the counter if needed for additional pain control. You may remove your outer surgical dressings tomorrow and shower. You will have small white bandages over your incisions called steri-strips, you may shower with these on. They will tend to fall off on their own within 7-10days. Pending Studies at Discharge: Yes Studies:: surgical pathology Stand-Alone Forms: My [facility], Smoking Cessation Medications and DC Order Prescriptions: New oxycodone 5 mg tablet 5 - 10 mg PO .[id number] PRN (Reason: pain, for initial therapy, max 6 tabs per day) Qty: 15 RF: 0 Continued tamsulosin 0.4 mg capsule 0.4 mg PO DAILY Qty: 90 RF: 3 atorvastatin 40 mg tablet 40 mg PO DAILY RF: 0 venlafaxine 75 mg capsule,extended release 24hr 225 mg PO DAILY RF: 0 potassium citrate 10 mEq (1,080 mg) tablet extended release 10 meq PO BID RF: 0 Discharge Orders: Discharge Order (Routine); Ordered 11/15/20 Ordered By: Marcial Lewis Jr Admission Data Admit Date/Time: 11/13/20 21:25 Attending Provider: Antolin Carlson Admit Provider: Antolin Carlson Primary Care Provider: Harjeet Peralta Other Providers: Antolin Carlson Other Interventions: Discharge Summary Assessment (RN) Last Done: 11/15/20 14:59 Coding Level of Care Code D/C Day Management <30 mins Diagnoses Acute appendicitis K35.30 Acute appendicitis type: with localized peritonitis Appendicitis abscess presence: without abscess Appendicitis gangrene presence: unspecified whether gangrene present Appendicitis perforation presence: without perforation
== END 2020-11-15 16:15 | disposition home or self-care (01) ==
LOC: ED 16:17 → 3N 19:38 → ED 19:38 → OR 21:06

== ENCOUNTER 2020-11-22 12:04 | Observation (INO) ==
--- NOTE | 2020-11-22 13:11 | Emergency Department Note ---
Impression & Plan Hemoperitoneum, Symptomatic anemia, Post-op bleeding ED Provider Note NAME: MACRINA GUSTAFSON AGE: 59 SEX: M : 1960 ARRIVES VIA: Walk-In INFORMANT: Patient ED PROVIDER(S): Dwight Londono DO CHIEF COMPLAINT: abdominal pain HPI: Patient is a 59-year-old male who presents to the ER for abdominal pain. It is in the suprapubic to right lower quadrant region. Patient was admitted on the and had a laparoscopic appendectomy performed by Dr. Antolin Carlson. Since then he was evaluated yesterday by Antolin and saw Dr. Peralta today. He has had increasing abdominal pain since this past Thursday. He denies any nausea or vomiting. He admits to dark urine. No other exacerbating or remitting factors. Pain is currently a 3 out of 10 at rest. When he pushed on his stomach pain up to 8 or 9 out of 10. ROS: See above HPI for pertinent positives & negatives. A total of 10 systems reviewed and were otherwise negative. PAST MEDICAL HISTORY:See Below PAST SURGICAL HISTORY:See Below FAMILY HISTORY:See Below SOCIAL HISTORY:See Below HOME MEDICATIONS:See Below ALLERGIES:See Below VITALS:See Below PHYSICAL EXAMINATION: GENERAL: Sitting up in bed, alert, well appearing, well nourished, no distress, non-toxic EYE EXAM: normal conjunctiva. OROPHARYNX: no exudate, no erythema, lips, buccal mucosa, and tongue normal and mucous membranes are moist NECK: supple, no nuchal rigidity, no adenopathy, non-tender LUNGS: Clear to auscultation. Normal chest wall mechanics HEART: no murmurs, S1 normal and S2 normal ABDOMEN: abdomen soft, tender in the lower abdomen wound with Steri-Strips in place. Bruising tracking down to the groin. UPPER EXTREMITIES: upper extremities are grossly normal. LOWER EXTREMITIES: No pitting edema. NEURO EXAM: Normal sensorium, cranial nerves II-XII grossly intact, normal speech, no gross weakness of arms, no gross weakness of legs. MEDICAL DECISION MAKING: Patient is a 59-year-old male who presents To the ER for abdominal pain status post appendectomy with belly swelling and worsening pain.IV was established blood work is obtained. Labs show mild leukocytosis of 10,000. Hemoglobin at 9.9 down from 16 when the presurgery was performed. BMP along with LFTs was fairly unremarkable. T bili was elevated at 2.6. Lipase was normal.UA had epithelial cells white cells red cells and nitrite positive but with the significant elevated bilirubin favor the nitrates are likely secondary to this. He had no urinary symptoms. Patient was given fluids. CT abdomen pelvis showed a large hemoperitoneum likely secondary to the recent appendectomy.This was discussed with Dr. Antolin Carlson. Updated the patient at bedside. Will monitor closely. He remained hemodynamically stable in the ER. Hemoglobin appears to be fairly consistent with discharge hemoglobin. Triage Nursing notes reviewed. Limited review of prior medical records performed Vital Signs: reviewed and remarkable for HTN Differential diagnosis: Differential diagnoses includes but is not limited to gastritis, peptic ulcer disease, GERD, gallbladder disease, pancreatitis, small bowel obstruction, acute coronary syndrome, pericarditis, ischemic bowel, irritable bowel disease, irritable bowel syndrome, appendicitis, diverticulitis, malignancy, hernia, urinary tract infection, torsion, /ectopic (if female), perforation, trauma, infectious. ER treatment provided: See below Diagnostics interpreted by me: ECG: none Cardiac Monitoring: An order was placed for continuous cardiac monitoring. The monitor shows a rate of 80 with sinus rhythm. Laboratory studies: As stated above and show below. Imaging studies: CT abdomen pelvis with a large amount of hemoperitoneum Consultation(s): Discussed with Dr. Antolin Carlson following which I discussed with Lor NUNEZ who admitted the patient. Procedures: none Critical Care: None Past Med/Surg History Medical History Abdominal pain Hypercholesterolemia Surgical History No pertinent past surgical history Family History Father Prostate cancer Hypertension Heart disease Uncle Prostate cancer Grandmother (Paternal) Hypertension Brother Diabetes Sister Diabetes Social History Smoking Status: Never smoker Hx Alcohol Use: No Hx Substance Use: No Preferred Language: Tamazight Communication Ability: Effective Beliefs That Will Affect Care: None marital status: Current Living Situation: Spouse Feels Safe at Home: Yes Assistive Devices: None Allergies Allergies Allergy/AdvReac Type Severity Reaction Status Date / Time codeine AdvReac Intermediate nausea Verified 11/22/20 14:57 Beef Containing Products AdvReac Verified 11/22/20 14:57 beef derived (bovine) AdvReac Verified 11/22/20 14:57 Home Meds Home Medications Medication Instructions Recorded Confirmed atorvastatin 40 mg PO DAILY 11/13/20 11/22/20 potassium citrate 10 meq PO BID 11/13/20 11/22/20 venlafaxine 225 mg PO DAILY 11/13/20 11/22/20 acetaminophen 325 mg tablet 325 mg PO QID PRN 11/21/20 11/22/20 ciprofloxacin HCl 500 mg PO BID 11/22/20 11/22/20 Previous Rx's Medication Instructions Recorded tamsulosin 0.4 mg capsule 0.4 mg PO DAILY #90 cap 08/21/20 oxycodone 5 - 10 mg PO .[id number] PRN #15 tab 11/15/20 Results & Data (ED) Vital Signs Vital Signs - 24 hr 11/22/20 12:06 11/22/20 13:16 11/22/20 14:40 Temperature 36.5 C Temperature Source Temporal Artery Scan Pulse Rate 93 H Pulse Rate [Apical] 81 83 Pulse Rhythm Regular Pulse Strength Normal Respiratory Rate 18 18 18 Respiratory Effort / Characteristics Non-Labored Spontaneous Respiratory Depth Normal Respiratory Pattern Regular Blood Pressure 144/85 H Blood Pressure [Left Arm] 149/85 H 156/88 H Blood Pressure Mean 104 Blood Pressure Mean [Left Arm] 106 110 Pulse Oximetry 95 97 95 Oxygen Delivery Method Room Air Room Air Room Air Sepsis Recent Fever Within 48 Hours No Sepsis New/Unexplained Change in Mental Status No Sepsis Action Taken by Nursing No Action Required Laboratory Data Result diagrams: 11/22/20 12:15 11/22/20 12:15 Lab Results 11/22/20 11/22/20 11/22/20 Range/Units 12:15 12:15 13:07 WBC 10.84 H (4.8-10.8) K/uL RBC 3.20 L (4.7-6.1) M/uL Hgb 9.9 L (14.0-18.0) g/dL Hct 30.2 L (42-52) % MCV 94.4 (80-100) fL MCH 30.9 (25-34) pg MCHC 32.8 (32-36) g/dL RDW Std Deviation 47.6 H (36.4-46.3) fL RDW Coeff of Ling 14.3 (11.5-14.5) % Plt Count 410 H (130-400) K/uL MPV 9.1 (7.4-10.4) fL Immature Gran % (Auto) 0.6 % Neut % (Auto) 74.1 % Lymph % (Auto) 10.8 % Foard % (Auto) 13.1 % Eos % (Auto) 1.2 % Baso % (Auto) 0.2 % Neut # (Auto) 8.04 H (1.4-6.5) K/uL Lymph # (Auto) 1.17 L (1.2-3.4) K/uL Foard # (Auto) 1.42 H (0.11-0.59) K/uL Eos # (Auto) 0.13 (0-0.5) K/uL Baso # (Auto) 0.02 (0-0.2) K/uL Immature Gran # (Auto) 0.06 H (0.00-0.02) K/uL Sodium 138 (136-145) mmol/L Potassium 4.3 (3.5-5.1) mmol/L Chloride 105 (98-107) mmol/L Carbon Dioxide 27 (21-32) mmol/L Anion Gap 6.0 (3-11) BUN 21 H (7-18) mg/dl Creatinine 1.25 (0.6-1.4) mg/dl Est Cr Clr Drug Dosing 72.1 ml/min Est GFR ( Amer) 71.6 ml/min Est GFR (Non-Af Amer) 61.8 ml/min BUN/Creatinine Ratio 16.8 (10-20) Glucose 88 (70-99) mg/dl Calcium 9.4 (8.5-10.1) mg/dl Total Bilirubin 2.6 H (0.2-1) mg/dl AST 75 H (15-37) U/L ALT 48 (12-78) U/L Alkaline Phosphatase 144 H (45-117) U/L Total Creatine Kinase 182 (39-308) U/L Total Protein 7.4 (6.4-8.2) gm/dl Albumin 3.6 (3.4-5.0) gm/dl Globulin 3.8 (2.5-4.0) gm/dl Albumin/Globulin Ratio 0.9 (0.9-2) Lipase 216 (73-393) U/L Urine Color Red Urine Appearance Cloudy A (Clear) Urine pH 5.5 (4.5-7.5) Ur Specific [place] 1.015 (1.000-1.030) Urine Protein 3+ H (Negative) Urine Glucose (UA) Negative (Negative) Urine Ketones Trace H (Negative) Urine Blood 3+ H (Negative) Urine Nitrite Positive A (Negative) Urine Bilirubin 1+ H (Negative) Urine Urobilinogen Negative (Negative) Ur Leukocyte Esterase Negative (Negative) Urine RBC 5-10 H (0-4) /hpf Urine WBC >30 H (0-5) /hpf Ur Epithelial Cells 10-20 H (0-5) /lpf Amorphous Sediment Present A (None Prsent) Urine Bacteria Negative (Negative) COVID-19 Eval Order SARS-CoV-2 (PCR) (Negative) 11/22/20 11/22/20 Range/Units 14:50 14:50 WBC (4.8-10.8) K/uL RBC (4.7-6.1) M/uL Hgb (14.0-18.0) g/dL Hct (42-52) % MCV (80-100) fL MCH (25-34) pg MCHC (32-36) g/dL RDW Std Deviation (36.4-46.3) fL RDW Coeff of Ling (11.5-14.5) % Plt Count (130-400) K/uL MPV (7.4-10.4) fL Immature Gran % (Auto) % Neut % (Auto) % Lymph % (Auto) % Foard % (Auto) % Eos % (Auto) % Baso % (Auto) % Neut # (Auto) (1.4-6.5) K/uL Lymph # (Auto) (1.2-3.4) K/uL Foard # (Auto) (0.11-0.59) K/uL Eos # (Auto) (0-0.5) K/uL Baso # (Auto) (0-0.2) K/uL Immature Gran # (Auto) (0.00-0.02) K/uL Sodium (136-145) mmol/L Potassium (3.5-5.1) mmol/L Chloride (98-107) mmol/L Carbon Dioxide (21-32) mmol/L Anion Gap (3-11) BUN (7-18) mg/dl Creatinine (0.6-1.4) mg/dl Est Cr Clr Drug Dosing ml/min Est GFR ( Amer) ml/min Est GFR (Non-Af Amer) ml/min BUN/Creatinine Ratio (10-20) Glucose (70-99) mg/dl Calcium (8.5-10.1) mg/dl Total Bilirubin (0.2-1) mg/dl AST (15-37) U/L ALT (12-78) U/L Alkaline Phosphatase (45-117) U/L Total Creatine Kinase (39-308) U/L Total Protein (6.4-8.2) gm/dl Albumin (3.4-5.0) gm/dl Globulin (2.5-4.0) gm/dl Albumin/Globulin Ratio (0.9-2) Lipase (73-393) U/L Urine Color Urine Appearance (Clear) Urine pH (4.5-7.5) Ur Specific [place] (1.000-1.030) Urine Protein (Negative) Urine Glucose (UA) (Negative) Urine Ketones (Negative) Urine Blood (Negative) Urine Nitrite (Negative) Urine Bilirubin (Negative) Urine Urobilinogen (Negative) Ur Leukocyte Esterase (Negative) Urine RBC (0-4) /hpf Urine WBC (0-5) /hpf Ur Epithelial Cells (0-5) /lpf Amorphous Sediment (None Prsent) Urine Bacteria (Negative) COVID-19 Eval Order Covid19 at [facility] SARS-CoV-2 (PCR) NEGATIVE (Negative) Administered Medications Discontinued Medications Acetaminophen (Acetaminophen 325 Mg Tab) 650 mg PO NOW STA Stop: 11/22/20 15:24 Last Admin: 11/22/20 15:38 Dose: 650 mg Documented by: [id number] Imaging Data Radiologist's Impression: Abdomen/Pelvis CT 11/22/20 13:07 CT OF THE ABDOMEN AND PELVIS WITH CONTRAST CLINICAL HISTORY: Abdominal pain. Status post appendectomy November 13, 2020. COMPARISON STUDY: CT of the abdomen and pelvis November 13, 2020. TECHNIQUE: Following IV administration of 95 mL of Optiray, axial images of the abdomen and pelvis were obtained from the lung bases to the proximal femurs. Images were reviewed in the axial, sagittal, and coronal planes. IV contrast was administered without complication. Automated exposure control was utilized for the study. A dose lowering technique was utilized adhering to the principles of ALARA. CT DOSE: 945.45 mGycm FINDINGS: Lower lung opacities represent atelectasis. No pneumatosis, free air or portal venous gas is present. There is a moderate amount of hyperdense fluid within the abdomen and pelvis, a new finding since CT of November 13, 2020. The source for this suspected hemoperitoneum is not clear on this exam. No active extravasation is identified. The liver, spleen and adrenal glands, kidneys and pancreas are unremarkable with exception of a 1 cm indeterminate lesion within the upper pole of the right kidney. This is unchanged. There is no evidence for a bowel obstruction. Appendix is surgically absent. Bladder wall is thickened. Innumerable bladder calculi are present. Prostate is enlarged. IMPRESSION: Hyperdense fluid within the abdomen and pelvis. The findings sugge st moderate hemoperitoneum. The source for hemoperitoneum is not clear on this CT. Urgent surgical consultation is recommended. Findings discussed with Dr. Londono at time of dictation. ACT 112: Negative or not required by law. Electronically signed by: Naveed Rodriguez M.D. 11/22/2020 2:35 PM Discharge Plan Visit Data Chief Complaint: Abdominal Pain Stated Complaint: SEVERE ABDOMINAL PAIN ED Provider: Dwight Londono Discharge Problem: Hemoperitoneum, Symptomatic anemia, Post-op bleeding Forms Stand Alone Forms: [facility] Prescriptions Prescriptions: No Action tamsulosin 0.4 mg capsule 0.4 mg PO DAILY Qty: 90 RF: 3 acetaminophen [Tylenol] 325 mg tablet 325 mg PO QID PRN (Reason: Pain) RF: 0 atorvastatin 40 mg tablet 40 mg PO DAILY RF: 0 venlafaxine 75 mg capsule,extended release 24hr 225 mg PO DAILY RF: 0 potassium citrate 10 mEq (1,080 mg) tablet extended release 10 meq PO BID RF: 0 oxycodone 5 mg tablet 5 - 10 mg PO .[id number] PRN (Reason: pain, for initial therapy, max 6 tabs per day) Qty: 15 RF: 0 ciprofloxacin HCl 500 mg tablet 500 mg PO BID RF: 0 Discharge Problem: Post-op bleeding Qualifiers: Surgical complication system/body Area: digestive system Procedure type: digestive system Qualified Code(s): K91.840 - Postprocedural hemorrhage of a digestive system organ or structure following a digestive system procedure
[2020-11-22 13:28] LABS: Basophils # (auto) 0.02 K/uL (0-0.2); Basophils % (auto) 0.2 %; Eosinophils # (auto) 0.13 K/uL (0-0.5); Eosinophils % (auto) 1.2 %; Hematocrit (blood only) 30.2 % (42-52); Hemoglobin 9.9 g/dL (14.0-18.0); Immature Granulocytes # (auto) 0.06 K/uL (0.00-0.02); Immature Granulocytes % (auto) 0.6 %; Lymphocytes # (auto) 1.17 K/uL (1.2-3.4); Lymphocytes % (auto) 10.8 %; Mean Corpuscular Hemoglobin 30.9 pg (25-34); Mean Corpuscular Hgb Conc 32.8 g/dL (32-36); Mean Corpuscular Volume 94.4 fL (80-100); Mean Platelet Volume 9.1 fL (7.4-10.4); Monocytes # (auto) 1.42 K/uL (0.11-0.59); Monocytes % (auto) 13.1 %; Neutrophils # (auto) 8.04 K/uL (1.4-6.5); Neutrophils % (auto) 74.1 %; Platelet Count 410 K/uL (130-400); RDW Coefficient of Variation 14.3 % (11.5-14.5); RDW Standard Deviation 47.6 fL (36.4-46.3); White Blood Count 10.84 K/uL (4.8-10.8)
[2020-11-22 13:46] LABS: Appearance Urine Cloudy (Clear); Bilirubin Urine 1+ (Negative); Blood Urine 3+ (Negative); Color Urine Red; Glucose Urine UA Negative (Negative); Ketones Urine Trace (Negative); Leukocyte Esterase Urine Negative (Negative); Nitrite Urine Positive (Negative); Protein Urine 3+ (Negative); Specific Gravity Urine 1.015 (1.000-1.030); Urobilinogen Urine Negative (Negative); pH Urine 5.5 (4.5-7.5)
[2020-11-22 13:49] LABS: Amorphous Sediment Urine Present (None Prsent); WBC Urine >30 /hpf (0-5)
[2020-11-22 13:50] LABS: Bacteria Urine Negative (Negative)
[2020-11-22 13:55] LABS: Albumin Globulin Ratio 0.9 (0.9-2); Albumin Level 3.6 gm/dl (3.4-5.0); BUN Creatinine Ratio 16.8 (10-20); Bilirubin,Total 2.6 mg/dl (0.2-1); Calcium 9.4 mg/dl (8.5-10.1); Creatinine Clr Calc Pharmacy 72.1 ml/min; Est GFR (African American) 71.6 ml/min; Est GFR (Non-African American) 61.8 ml/min; Globulin 3.8 gm/dl (2.5-4.0); Total Protein 7.4 gm/dl (6.4-8.2)
[2020-11-22 13:56] LABS: Potassium 4.3 mmol/L (3.5-5.1)
--- NOTE | 2020-11-22 14:36 | CT Scan Report ---
CT OF THE ABDOMEN AND PELVIS WITH CONTRAST CLINICAL HISTORY: Abdominal pain. Status post appendectomy November 13, 2020. COMPARISON STUDY: CT of the abdomen and pelvis November 13, 2020. TECHNIQUE: Following IV administration of 95 mL of Optiray, axial images of the abdomen and pelvis we re obtained from the lung bases to the proximal femurs. Images were reviewed in the axial, sagittal, and coronal planes. IV contrast was administered without complication. Automated exposure control wa s utilized for the study. A dose lowering technique was utilized adhering to the principles of ALARA . CT DOSE: 945.45 mGycm FINDINGS: Lower lung opacities represent atelectasis. No pneumatosis, free air or portal venous gas i s present. There is a moderate amount of hyperdense fluid within the abdomen and pelvis, a new findin g since CT of November 13, 2020. The source for this suspected hemoperitoneum is not clear on this exam. N o active extravasation is identified. The liver, spleen and adrenal glands, kidneys and pancreas are unremarkable with exception of a 1 cm indeterminate lesion within the upper pole of the right kidney. This is unchanged. There is no evidence for a bowel obstruction. Appendix is surgically absent. Blad radha wall is thickened. Innumerable bladder calculi are present. Prostate is enlarged. IMPRESSION: Hyperdense fluid within the abdomen and pelvis. The findings suggest moderate hemoperito neum. The source for hemoperitoneum is not clear on this CT. Urgent surgical consultation is recommen ded. Findings discussed with Dr. Londono at time of dictation. ACT 112: Negative or not required by law. Electronically signed by: Naveed Rodriguez M.D. 11/22/2020 2:35 PM
--- NOTE | 2020-11-22 14:50 | History & Physical Report ---
Date of Service November 22, 2020 Assessment & Plan (1) Hemoperitoneum: This is a 59y M who is recently s/p laparoscopic appendectomy with Dr. Carlson on 11/13/20 who was referred to the ER with abdominal pain after being evaluated by his PCP today. Workup in the ER with a CT a/p showed findings of hyperdense fluid within the abdomen and pelvis,findings suggest moderate hemoperitoneum. Of note, postoperatively the patient was monitored for 48 hours for a hbg drop. On the day of discharge his hbg was stable at 9.5 on two separate checks. Today in the ER Hbg is 9.9. On examination eugene's abdomen is soft, and tender to palpation in the lower abdomen (worse on L side), with noted ecchymosis supra-pubically. His vital signs are stable with HR's in the 80s and SBP 140-150s. Due to findings on CT scan and patient's symptoms we will admit him for close observation. We will continue to monitor vitals and obtain a repeat CBC in the AM. Patient is okay to have a diet. We will order prn pain and nausea medication to be available should patient need it. Please inform us of any acute change in vitals or patient's clinical status. No plans for acute surgical intervention at this time. Continue abx for +UA yesterday. Plan of care has been discussed with Dr. Carlson. (2) S/P laparoscopic appendectomy: History of Present Illness Primary Care Provider: Harjeet Peralta MD This is a 59y M who is recently s/p laparoscopic appendectomy with Dr. Carlson on 11/13/20 presenting to the ER today with abdominal pain. Postoperatively patient was monitored for 2 days post procedure for Hbg drop. Hbg remained stable at 9.5 on two separate checks on 11/15 and the patient was deemed stable for discharge to home tolerating a diet and pain well managed. Patient was seen in surgery clinic yesterday for follow up and noticed "purple colored urine" since Thursday. A UA was sent off + for infection and he was started on Cipro. Patient reports since returning home from his office visit he has had an increa se in abdominal pain. He reports mild nausea and low appetite. He denies any fevers/chills, change in bowel habits. He saw his PCP today who recommended patient come to the ER for evaluation due to severity of abdominal pain patient was experiencing. In the ER patient underwent a CT a/p that revealed hyperdense fluid within the abdomen and pelvis, suggesting moderate hemoperitoneum. Allergies Allergy/AdvReac Type Severity Reaction Status Date / Time codeine AdvReac Intermediate nausea Verified 11/22/20 14:57 Beef Containing Products AdvReac Verified 11/22/20 14:57 beef derived (bovine) AdvReac Verified 11/22/20 14:57 Home Medications Medication Instructions Recorded Confirmed Type tamsulosin 0.4 mg capsule 0.4 mg PO DAILY #90 cap 08/21/20 11/22/20 Rx atorvastatin 40 mg PO DAILY 11/13/20 11/22/20 History potassium citrate 10 meq PO BID 11/13/20 11/22/20 History venlafaxine 225 mg PO DAILY 11/13/20 11/22/20 History oxycodone 5 - 10 mg PO .[id number] PRN #15 tab 11/15/20 11/22/20 Rx acetaminophen 325 mg tablet 325 mg PO QID PRN 11/21/20 11/22/20 History ciprofloxacin HCl 500 mg PO BID 11/22/20 11/22/20 History Past Med/Surg History Medical History Abdominal pain Hypercholesterolemia Surgical History No pertinent past surgical history Family History Father Prostate cancer Hypertension Heart disease Uncle Prostate cancer Grandmother (Paternal) Hypertension Brother Diabetes Sister Diabetes Social History Smoking Status: Never smoker Hx Alcohol Use: No Hx Substance Use: No Preferred Language: Palestinian Communication Ability: Effective 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 Beliefs That Will Affect Care: None marital status: Current Living Situation: Spouse Other Information That Helps Us Care for You: No Feels Safe at Home: Yes Assistive Devices: Glasses Review of Systems Constitutional: + anorexia; no fever and no chills Respiratory: no dyspnea Gastrointestinal: + abdominal pain and + nausea; no vomiting and no change in bowel habits Physical Exam Physical Exam: awake/alert Constitutional: no acute distress Gastrointestinal (Abdomen): Inspection/Auscultation: + abdominal surgical incision (c/d/i with steri-strips overtop) Percussion/Palpation: + abdomen tender (ttp in LLQ and suprapubic regions) and abdomen soft + ecchymosis supra-pubic region Results & Data Results & Data ([facility]) Vital Signs (Past 12 Hours) Vital Signs Temp Pulse Pulse Resp BP BP Pulse Ox 11/22/20 14:40 83 18 156/88 H 95 11/22/20 13:16 81 18 149/85 H 97 11/22/20 12:06 36.5 C 93 H 18 144/[address] OF THE ABDOMEN AND PELVIS WITH CONTRAST CLINICAL HISTORY: Abdominal pain. Status post appendectomy November 13, 2020. COMPARISON STUDY: CT of the abdomen and pelvis November 13, 2020. TECHNIQUE: Following IV administration of 95 mL of Optiray, axial images of the abdomen and pelvis were obtained from the lung bases to the proximal femurs. Images were reviewed in the axial, sagittal, and coronal planes. IV contrast was administered without complication. Automated exposure control was utilized for the study. A dose lowering technique was utilized adhering to the principles of ALARA. CT DOSE: 945.45 mGycm FINDINGS: Lower lung opacities represent atelectasis. No pneumatosis, free air or portal venous gas is present. There is a moderate amount of hyperdense fluid within the abdomen and pelvis, a new finding since CT of November 13, 2020. The source for this suspected hemoperitoneum is not clear on this exam. No active extravasation is identified. The liver, spleen and adrenal glands, kidneys and pancreas are unremarkable with exception of a 1 cm indeterminate lesion within the upper pole of the right kidney. This is unchanged. There is no evidence for a bowel obstruction. Appendix is surgically absent. Bladder wall is thickened. Innumerable bladder calculi are present. Prostate is enlarged. IMPRESSION: Hyperdense fluid within the abdomen and pelvis. The findings suggest moderate hemoperitoneum. The source for hemoperitoneum is not clear on this CT. Urgent surgical consultation is recommended. Findings discussed with Dr. Londono at time of dictation. ACT 112: Negative or not required by law. Electronically signed by: Naveed Rodriguez M.D. 11/22/2020 2:35 PM Supervising Physician Co-Signing Physician Notes I personally saw and evaluated the patient with Lor Curtis PA-C and agree with the assessment and plan 59 yo male POD#8 from laparoscopic appendectomy, now with hemoperitoneum -Admit for pain control and observation -Recheck CBC in AM, has been stable since discharge, vitals have been stable -He is afebrile, tolerating a diet with bowel function -Cipro for UTI -His bilirubin is elevated and also present in his UA which could account for his darker urine PG Care Time/CCT Total # of Minutes Spent Total Time Spent with Patient: Total time spent is greater than 50% in coordi nation of care (as documented) at patient's floor/unit and/or counseling patient: Coding Level of Care Code None Diagnoses Hemoperitoneum K66.1 S/P laparoscopic appendectomy Z90.49
[2020-11-22] MEDS ORDERED: ACETAMINOPHEN 325 MG TAB PO STA (15:23)
[2020-11-22] MEDS ORDERED: ONDANSETRON INJ 2 MG/ML 2 ML VIAL IV PRN (18:02)
[2020-11-22] MEDS ORDERED: oxyCODONE HCL IR 5 MG TAB (IMMEDIATE RELEASE) PO PRN (18:02)
[2020-11-22] MEDS ORDERED: MoRPHine SULFATE 2 MG/ML CARP IV PRN (18:02)
[2020-11-22] MEDS ORDERED: TAMSULOSIN HCL 0.4 MG CAP PO SCH (21:00)
[2020-11-22] MEDS: CIPROFLOXACIN 500 MG TAB PO SCH (21:39)
[2020-11-22] MEDS: POTASSIUM CITRATE 10 MEQ TAB PO SCH (21:40)
[2020-11-22] MEDS: ACETAMINOPHEN 325 MG TAB PO PRN (22:59)
[2020-11-23 07:24] LABS: Basophils # (auto) 0.02 K/uL (0-0.2); Basophils % (auto) 0.2 %; Eosinophils # (auto) 0.14 K/uL (0-0.5); Eosinophils % (auto) 1.5 %; Hematocrit (blood only) 28.8 % (42-52); Hemoglobin 9.4 g/dL (14.0-18.0); Immature Granulocytes # (auto) 0.04 K/uL (0.00-0.02); Immature Granulocytes % (auto) 0.4 %; Lymphocytes # (auto) 1.01 K/uL (1.2-3.4); Mean Corpuscular Hemoglobin 30.9 pg (25-34); Mean Corpuscular Hgb Conc 32.6 g/dL (32-36); Mean Corpuscular Volume 94.7 fL (80-100); Mean Platelet Volume 9.3 fL (7.4-10.4); Monocytes # (auto) 0.96 K/uL (0.11-0.59); Monocytes % (auto) 10.4 %; Neutrophils # (auto) 7.04 K/uL (1.4-6.5); Neutrophils % (auto) 76.5 %; Platelet Count 396 K/uL (130-400); RDW Coefficient of Variation 14.4 % (11.5-14.5); RDW Standard Deviation 48.4 fL (36.4-46.3); Red Blood Count 3.04 M/uL (4.7-6.1); White Blood Count 9.21 K/uL (4.8-10.8)
[2020-11-23 07:27] LABS: Potassium 4.2 mmol/L (3.5-5.1)
[2020-11-23 07:28] LABS: BUN Creatinine Ratio 16.8 (10-20); Calcium 9.3 mg/dl (8.5-10.1); Creatinine Clr Calc Pharmacy 68.6 ml/min; Est GFR (African American) 68.3 ml/min; Est GFR (Non-African American) 58.9 ml/min
--- NOTE | 2020-11-23 08:42 | Surgery Progress Note ---
Date of Service November 23, 2020 Assessment & Plan (1) Hemoperitoneum: (2) S/P laparoscopic appendectomy: -Doing well -Pain controlled -His Hgb continues to remain stable, will check this afternoon -Continue Cipro BID for UTI -Explained to patient that likely his bleeding occurred immediately after surgery and is not bleeding currently -Blood is very irritating to peritoneum and causes pain, but as long as his pain is manageable, he is afebrile and tolerating a diet and CBC stable he is able to be discharged home with follow up next week -Recheck CBC this afternoon with possible discharge at that time Admission and Anticipated Discharge Date Admission Date: November 22, 2020 Subjective Pt seen and examined. Afebrile. Pain is manageable and he states getting in a nd out of bed is easier than a few days ago. No N/V. +Flatus. Vitals stable. Review of Systems Constitutional: no fever and no chills Physical Exam Constitutional: WD/WN, vitals as above Gastrointestinal (Abdomen): Soft, TTP generalized, +ecchymosis to suprapubic area, non-distended Results & Data ([facility]) Vital Signs (Past 12 Hours) Vital Signs Temp Pulse Resp BP Pulse Ox 11/22/20 23:00 36.1 C L 90 14 118/78 92 PG Care Time/CCT Total # of Minutes Spent Total Time Spent with Patient: Total time spent is greater than 50% in coordination of care (as documented) at patient's floor/unit and/or counseling patient: Coding Level of Care Code None Diagnoses Hemoperitoneum K66.1 S/P laparoscopic appendectomy Z90.49
[2020-11-23] MEDS: ACETAMINOPHEN 325 MG TAB PO PRN (08:53)
[2020-11-23] MEDS: POTASSIUM CITRATE 10 MEQ TAB PO SCH (08:53)
[2020-11-23] MEDS: CIPROFLOXACIN 500 MG TAB PO SCH (08:53)
[2020-11-23] MEDS ORDERED: VENLAFAXINE HCL XR 75 MG CAPXR PO SCH (09:00)
[2020-11-23] MEDS ORDERED: ATORVASTATIN 40 MG TAB PO SCH (09:00)
[2020-11-23 13:10] LABS: Basophils # (auto) 0.02 K/uL (0-0.2); Basophils % (auto) 0.2 %; Eosinophils # (auto) 0.12 K/uL (0-0.5); Eosinophils % (auto) 1.5 %; Hematocrit (blood only) 29.5 % (42-52); Hemoglobin 9.8 g/dL (14.0-18.0); Immature Granulocytes # (auto) 0.04 K/uL (0.00-0.02); Immature Granulocytes % (auto) 0.5 %; Lymphocytes # (auto) 0.86 K/uL (1.2-3.4); Lymphocytes % (auto) 10.6 %; Mean Corpuscular Hemoglobin 31.2 pg (25-34); Mean Corpuscular Hgb Conc 33.2 g/dL (32-36); Mean Corpuscular Volume 93.9 fL (80-100); Mean Platelet Volume 8.9 fL (7.4-10.4); Monocytes # (auto) 0.91 K/uL (0.11-0.59); Monocytes % (auto) 11.2 %; Neutrophils # (auto) 6.18 K/uL (1.4-6.5); Platelet Count 397 K/uL (130-400); RDW Coefficient of Variation 14.4 % (11.5-14.5); RDW Standard Deviation 48.2 fL (36.4-46.3); Red Blood Count 3.14 M/uL (4.7-6.1); White Blood Count 8.13 K/uL (4.8-10.8)
--- NOTE | 2020-11-26 10:40 | Discharge Summary ---
Date of Service November 26, 2020 Admission HPI Per Admitting Provider This is a 59y M who is recently s/p laparoscopic appendectomy with Dr. Carlson on 11/13/20 presenting to the ER today with abdominal pain. Postoperatively patient was monitored for 2 days post procedure for Hbg drop. Hbg remained stable at 9.5 on two separate checks on 11/15 and the patient was deemed stable for discharge to home tolerating a diet and pain well managed. Patient was seen in surgery clinic yesterday for follow up and noticed "purple colored urine" since Thursday. A UA was sent off + for infection and he was started on Cipro. Patient reports since returning home from his office visit he has had an increa se in abdominal pain. He reports mild nausea and low appetite. He denies any fevers/chills, change in bowel habits. He saw his PCP today who recommended patient come to the ER for evaluation due to severity of abdominal pain patient was experiencing. In the ER patient underwent a CT a/p that revealed hyperdense fluid within the abdomen and pelvis, suggesting moderate hemoperitoneum. Principal Diagnosis hemoperitoneum s/p laparoscopic appendectomy Discharge Exam awake/alert Constitutional no acute distress Gastrointestinal (Abdomen) Inspection/Auscultation: + abdominal surgical incision (c/d/i); abdomen not distended Percussion/Palpation: + abdomen tender (ttp generalized) and abdomen soft supra-pubic ecchymosis Discharge Data Allergies Allergy/AdvReac Type Severity Reaction Status Date / Time codeine AdvReac Intermediate nausea Verified 11/22/20 14:57 Beef Containing Products AdvReac Verified 11/22/20 14:57 beef derived (bovine) AdvReac Verified 11/22/20 14:57 Consultations 11/22/20 14:45 ED Decision to Admit Stat Ordered Studies 11/22/20 13:07 CT abd pelvis IV con only Stat Hospital Course (1) Hemoperitoneum: This is a 59y M who is recently s/p laparoscopic appendectomy with Dr. Carlson on 11/13/20 who presented to the [facility] ED on 11/22/20 with complaints of abdominal pain. Patient underwent a CT a/p that revealed hyperdense fluid within the abdomen and pelvis. The findings suggest moderate hemoperitoneum. Patient's VSS. Hbg 9.9 from 9.5 on day of discharge from lap appy. Decision was made to admit patient to the hospital for close observation. He was given a diet and pain controlled on prn pain medication. Patient's vital signs monitored and remained stable. On 11/23 AM hbg stable at 9.4 and an afternoon recheck was 9.8. His pain was better managed, he was tolerating a diet and passing flatus. VSS. No concerns for acute bleeding, likely that this happened immediately after surgery. He was deemed stable for discharge to home with plans to follow up in clinic within 1 week. (2) S/P laparoscopic appendectomy: Total Time Total Time Spent Total Time Spent (In Minutes): 10 Discharge Plan Discharge Items Patient Disposition: Home - Self-Care Reason For Visit: S/P LAP APPY WITH HEMOPERITONEUM Discharge Diagnosis: UTI Activity: As commented below Bathing: No limitations Non-emergency contact: Surgeon Call non-emergency contact if: you have any medication questions, your pain is not controlled and your temperature is above 101.5 Follow-up/Referrals: Antolin Carlson DO [Physician] - 11/28/20 9:50 am (Call the office to schedule if you do not already have an appt) Harjeet Peralta MD [Primary Care Provider] - Diet: Regular Addtl Attending Provider Instructions: You can take Tylenol 325 or 500 mg every fours hours as needed for pain Pending Studies at Discharge: No Stand-Alone Forms: My [employer], Smoking Cessation Medications and DC Order Prescriptions: Continued tamsulosin 0.4 mg capsule 0.4 mg PO DAILY Qty: 90 RF: 3 acetaminophen [Tylenol] 325 mg tablet 325 mg PO QID PRN (Reason: Pain) RF: 0 atorvastatin 40 mg tablet 40 mg PO DAILY RF: 0 venlafaxine 75 mg capsule,extended release 24hr 225 mg PO DAILY RF: 0 potassium citrate 10 mEq (1,080 mg) tablet extended release 10 meq PO BID RF: 0 oxycodone 5 mg tablet 5 - 10 mg PO .[id number] PRN (Reason: pain, for initial therapy, max 6 tabs per day) Qty: 15 RF: 0 ciprofloxacin HCl 500 mg tablet 500 mg PO BID RF: 0 Discharge Orders: Discharge Order (Routine); Ordered 11/23/20 Ordered By: Marcial Baker/Other Patient Handouts: DVT Post Op Prevention Admission Data Admit Date/Time: 11/22/20 14:45 Attending Provider: Antolin Carlson Admit Provider: Lor Curtis Primary Care Provider: Harjeet Peralta Other Providers: Lor Curtis Other Interventions: Discharge Summary Assessment (RN) Last Done: 11/23/20 12:44 Coding Level of Care Code D/C Day Management <30 mins Diagnoses Hemoperitoneum K66.1 S/P laparoscopic appendectomy Z90.49
== END 2020-11-23 15:04 | disposition home or self-care (01) ==
LOC: 3N 12:04 → ED 12:04 → 3N 17:35

== ENCOUNTER 2022-07-18 10:03 | Inpatient (IN) ==
[2022-07-18] MEDS ORDERED: LORazepam 1 MG TAB SL STA (10:29)
--- NOTE | 2022-07-18 10:34 | Emergency Department Note ---
Impression & Plan Depression with suicidal ideation ED Provider Note Name: MACRINA GUSTAFSON Age: 61 Sex: M Arrives Via: Walk-In Informant: Patient ED Provider: Tyrone Lilly MD Chief Complaint: Depression Impression: As per impressions above Medical Decision Makin-year-old gentleman with history of anxiety depression, hyperlipidemia, elevated PSA who arrives for evaluation of severe depression and now having suicidal thoughts with a plan. He is severely sad crying and in distress. Medically the patient is clear. It was given some Ativan with mild improvement. Patient was accepted to [address] [place] [address] for further management Prior Medical Record and Triage/Nursing Notes reviewed by Me Differentials:Mood disorder, infection, hypoglycemia, electrolyte abnormalities, cardiac sources, intracerebral event, toxicologic, trauma, neurologic, as well as other pathologies. Vital Signs: reviewed and remarkable for no significant abnormalities Interventions: ativan 1mg po Labs:Reviewed and remarkable for no significant abnormalities Consults:Mental Health Case Management - Agree with need for hospitalization. Plan: Disposition:Hospitalization. [address] [place] [address] on [address] Basis Condition: Good History of Present Illness:61-year-old male arrives for evaluation of depression. Patient states for the last few months worsening depression. 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 States depression is gotten worse that his grandkids are having psychiatric issues as well as in and out of detention. Patient states that he is now to the point where he wants to kill himself. This is been going on the last few weeks. His plan is to either jump off a bridge or walk in front of a car. He states he is come close several times. He adamantly states he has not attempted to harm himself yet but is afraid he will do so. He has not been able to tell his that he is going through all this. He talked to his PCP today who advised to come to the ER for evaluation. Patient does feel that he needs to be admitted for psychiatric management. He has been on Effexor without improvement. Nothing makes better or worse. Denies any medical complaints at this time. No recent fevers, chills, chest pain, headaches, neck pain, shortness of breath, abdominal pain, urinary or bowel symptoms or other concerning signs or symptoms. Past History:Depression/anxiety, enlarged prostate status post prostatectomy, hyperlipidemia Home Medications:See Below Allergies:Codeine Vitals:Blood Pressure: 138/94, Pulse 104, RR 18, T 36.7C, O2 93% on RA Physical Exam: GENERAL: Patient is severely sad appearing and in moderate distress. EYES: No scleral icterus, unremarkable pupils. RESPIRATORY: No dyspnea. Clear to auscultation and equal bilaterally. No wheeze, no rhonchi. CARDIOVASCULAR: Regular rate and rhythm.No murmurs, rubs, gallops appreciated. EXTREMITIES: Normal motion all extremities, no cyanosis, no edema. NEUROLOGIC: Alert and oriented, no acute focal neurologic deficit appreciated SKIN: No rash, no jaundice, no diaphoresis. PSYCH: Severely sad and depressed sobbing states he wishes to kill himself. GCS: 15 Tyrone Lilly MD Past Med/Surg History Medical History Abdominal pain Hypercholesterolemia Surgical History No pertinent past surgical history Family History Father Prostate cancer Hypertension Heart disease Uncle Prostate cancer Grandmother (Paternal) Hypertension Brother Diabetes Sister Diabetes Social History Smoking Status: Never smoker Hx Alcohol Use: No Hx Substance Use: No Preferred Language: Kazakh Communication Ability: Effective Wildlife Officer Required: No Beliefs That Will Affect Care: None marital status: Current Living Situation: Spouse Feels Safe at Home: Hesitant to Answer Gender Identity: Male Assistive Devices: None Allergies Allergies Allergy/AdvReac Type Severity Reaction Status Date / Time codeine AdvReac Intermediate nausea Verified 11/28/20 09:49 Beef Containing Products AdvReac Verified 11/28/20 09:49 beef derived (bovine) AdvReac Verified 11/28/20 09:49 Home Meds Home Medications Medication Instructions Recorded Confirmed atorvastatin 40 mg tablet 40 mg PO DAILY 11/13/20 07/18/22 potassium citrate 10 mEq (1,080 10 meq PO BID 11/13/20 07/18/22 mg) tablet,extended release venlafaxine 75 mg capsule,extended 225 mg PO DAILY 11/13/20 07/18/22 release 24 hr finasteride 5 mg tablet 5 mg PO DAILY 07/18/22 07/18/22 Results & Data (ED) Vital Signs Vital Signs - 24 hr 07/18/22 10:10 07/18/22 13:01 Temperature 36.7 C Temperature Source Oral Pulse Rate 104 H Pulse Rate [Right Finger] 88 Respiratory Rate 18 Blood Pressure 138/94 Blood Pressure [Left Arm] 121/75 Blood Pressure Mean 108 Blood Pressure Mean [Left Arm] 90 Blood Pressure Position [Left Arm] Lying Pulse Oximetry 93 97 Oxygen Delivery Method Room Air Room Air Sepsis Recent Fever Within 48 Hours No Sepsis New/Unexplained Change in Mental Status No Sepsis Action Taken by Nursing No Action Required Laboratory Data 07/18/22 11:18 07/18/22 11:18 Lab Results 07/18/22 07/18/22 07/18/22 Range/Units 10: 10: 10:41 WBC (4.8-10.8) K/ul RBC (4.70-6.10) M/uL Hgb (14.0-18.0) g/dl Hct (42.0-52.0) % MCV (80.0-100.0) fL MCH (25.0-34.0) pg MCHC (32.0-36.0) g/dL RDW Std Deviation (36.4-46.3) fL RDW Coeff of Ling (11.5-14.5) % Plt Count (130-400) K/uL MPV (9.4-12.4) fL Immature Gran % (Auto) % Neut % (Auto) % Lymph % (Auto) % Menard % (Auto) % Eos % (Auto) % Baso % (Auto) % Neut # (Auto) (1.40-6.50) K/uL Lymph # (Auto) (1.2-3.4) K/uL Menard # (Auto) (0.11-0.59) K/uL Eos # (Auto) (0-0.50) K/uL Baso # (Auto) (0-0.2) K/uL Immature Gran # (Auto) (0.01-0.20) K/uL Sodium (136-145) mmol/L Potassium (3.5-5.1) mmol/L Chloride (98-107) mmol/L Carbon Dioxide (21-32) mmol/L Anion Gap (3-11) BUN (6-23) mg/dl Creatinine (0.6-1.4) mg/dl Est Cr Clr Drug Dosing ml/min Est GFR ( Amer) ml/min Est GFR (Non-Af Amer) ml/min BUN/Creatinine Ratio (10-20) Glucose (70-99(Fasting)) mg/dl Calcium (8.5-10.1) mg/dl Total Bilirubin (0.2-1.0) mg/dl AST (13-39) U/L ALT (7-52) U/L Alkaline Phosphatase (34-104) U/L Total Protein (6.0-8.3) gm/dl Albumin (3.4-5.0) gm/dl Globulin (2.5-4.0) gm/dl Albumin/Globulin Ratio (0.9-2) TSH (0.300-4.500) uIu/ml Urine Color Yellow Urine Appearance Clear (Clear) Urine pH 5.5 (4.5-7.5) Ur Specific [place] 1.027 (1.000-1.030) Urine Protein Negative (Negative) Urine Glucose (UA) Trace H (Negative) Urine Ketones Trace H (Negative) Urine Blood Negative (Negative) Urine Nitrite Negative (Negative) Urine Bilirubin Negative (Negative) Urine Urobilinogen Negative (Negative) Ur Leukocyte Esterase Negative (Negative) Salicylates (3.0-30) mg/dl Urine Opiates Screen Neg (Neg) Ur Methadone, Qual Neg (Neg) Acetaminophen (10-30) ug/ml Urine Barbiturates Neg (Neg) Ur Phencyclidine (PCP) Neg (Neg) U Amphetamin/Meth Scrn Neg (Neg) MDMA (Ecstasy) Screen Neg (Neg) U Benzodiazepines Scrn Neg (Neg) Ur Cocaine Metabolite Neg (Neg) U Marijuana (THC) Screen Neg (Neg) Ethyl Alcohol mg/dL (<10.0) mg/dl SARS-CoV-2, RNA, NAAT NEGATIVE (NEGATIVE) 07/18/22 07/18/22 07/18/22 Range/Units 11:18 11:18 11:18 WBC 5.46 (4.8-10.8) K/ul RBC 5.21 (4.70-6.10) M/uL Hgb 15.9 (14.0-18.0) g/dl Hct 45.0 (42.0-52.0) % MCV 86.4 (80.0-100.0) fL MCH 30.5 (25.0-34.0) pg MCHC 35.3 (32.0-36.0) g/dL RDW Std Deviation 37.2 (36.4-46.3) fL RDW Coeff of Ling 11.8 (11.5-14.5) % Plt Count 227 (130-400) K/uL MPV 10.1 (9.4-12.4) fL Immature Gran % (Auto) 0.2 % Neut % (Auto) 68.9 % Lymph % (Auto) 21.6 % Menard % (Auto) 7.7 % Eos % (Auto) 0.9 % Baso % (Auto) 0.7 % Neut # (Auto) 3.76 (1.40-6.50) K/uL Lymph # (Auto) 1.18 L (1.2-3.4) K/uL Menard # (Auto) 0.42 (0.11-0.59) K/uL Eos # (Auto) 0.05 (0-0.50) K/uL Baso # (Auto) 0.04 (0-0.2) K/uL Immature Gran # (Auto) 0.01 (0.01-0.20) K/uL Sodium 138 (136-145) mmol/L Potassium 3.9 (3.5-5.1) mmol/L Chloride 107 (98-107) mmol/L Carbon Dioxide 26 (21-32) mmol/L Anion Gap 5 (3-11) BUN 15 (6-23) mg/dl Creatinine 1.07 (0.6-1.4) mg/dl Est Cr Clr Drug Dosing 85.5 ml/min Est GFR ( Amer) 85.2 ml/min Est GFR (Non-Af Amer) 73.5 ml/min BUN/Creatinine Ratio 14.0 (10-20) Glucose 92 (70-99(Fasting)) mg/dl Calcium 9.5 (8.5-10.1) mg/dl Total Bilirubin 0.7 (0.2-1.0) mg/dl AST 19 (13-39) U/L ALT 38 (7-52) U/L Alkaline Phosphatase 124 H (34-104) U/L Total Protein 7.3 (6.0-8.3) gm/dl Albumin 4.5 (3.4-5.0) gm/dl Globulin 2.8 (2.5-4.0) gm/dl Albumin/Globulin Ratio 1.6 (0.9-2) TSH 1.280 (0.300-4.500) uIu/ml Urine Color Urine Appearance (Clear) Urine pH (4.5-7.5) Ur Specific [place] (1.000-1.030) Urine Protein (Negative) Urine Glucose (UA) (Negative) Urine Ketones (Negative) Urine Blood (Negative) Urine Nitrite (Negative) Urine Bilirubin (Negative) Urine Urobilinogen (Negative) Ur Leukocyte Esterase (Negative) Salicylates (3.0-30) mg/dl Urine Opiates Screen (Neg) Ur Methadone, Qual (Neg) Acetaminophen (10-30) ug/ml Urine Barbiturates (Neg) Ur Phencyclidine (PCP) (Neg) U Amphetamin/Meth Scrn (Neg) MDMA (Ecstasy) Screen (Neg) U Benzodiazepines Scrn (Neg) Ur Cocaine Metabolite (Neg) U Marijuana (THC) Screen (Neg) Ethyl Alcohol mg/dL (<10.0) mg/dl SARS-CoV-2, RNA, NAAT (NEGATIVE) 07/18/22 07/18/22 Range/Units 11:18 11:18 WBC (4.8-10.8) K/ul RBC (4.70-6.10) M/uL Hgb (14.0-18.0) g/dl Hct (42.0-52.0) % MCV (80.0-100.0) fL MCH (25.0-34.0) pg MCHC (32.0-36.0) g/dL RDW Std Deviation (36.4-46.3) fL RDW Coeff of Ling (11.5-14.5) % Plt Count (130-400) K/uL MPV (9.4-12.4) fL Immature Gran % (Auto) % Neut % (Auto) % Lymph % (Auto) % Menard % (Auto) % Eos % (Auto) % Baso % (Auto) % Neut # (Auto) (1.40-6.50) K/uL Lymph # (Auto) (1.2-3.4) K/uL Menard # (Auto) (0.11-0.59) K/uL Eos # (Auto) (0-0.50) K/uL Baso # (Auto) (0-0.2) K/uL Immature Gran # (Auto) (0.01-0.20) K/uL Sodium (136-145) mmol/L Potassium (3.5-5.1) mmol/L Chloride (98-107) mmol/L Carbon Dioxide (21-32) mmol/L Anion Gap (3-11) BUN (6-23) mg/dl Creatinine (0.6-1.4) mg/dl Est Cr Clr Drug Dosing ml/min Est GFR ( Amer) ml/min Est GFR (Non-Af Amer) ml/min BUN/Creatinine Ratio (10-20) Glucose (70-99(Fasting)) mg/dl Calcium (8.5-10.1) mg/dl Total Bilirubin (0.2-1.0) mg/dl AST (13-39) U/L ALT (7-52) U/L Alkaline Phosphatase (34-104) U/L Total Protein (6.0-8.3) gm/dl Albumin (3.4-5.0) gm/dl Globulin (2.5-4.0) gm/dl Albumin/Globulin Ratio (0.9-2) TSH (0.300-4.500) uIu/ml Urine Color Urine Appearance (Clear) Urine pH (4.5-7.5) Ur Specific [place] (1.000-1.030) Urine Protein (Negative) Urine Glucose (UA) (Negative) Urine Ketones (Negative) Urine Blood (Negative) Urine Nitrite (Negative) Urine Bilirubin (Negative) Urine Urobilinogen (Negative) Ur Leukocyte Esterase (Negative) Salicylates < 3.0 L (3.0-30) mg/dl Urine Opiates Screen (Neg) Ur Methadone, Qual (Neg) Acetaminophen < 3 L (10-30) ug/ml Urine Barbiturates (Neg) Ur Phencyclidine (PCP) (Neg) U Amphetamin/Meth Scrn (Neg) MDMA (Ecstasy) Screen (Neg) U Benzodiazepines Scrn (Neg) Ur Cocaine Metabolite (Neg) U Marijuana (THC) Screen (Neg) Ethyl Alcohol mg/dL < 10.0 (<10.0) mg/dl SARS-CoV-2, RNA, NAAT (NEGATIVE) Administered Medications Discontinued Medications Lorazepam (Lorazepam 1 Mg Tab) 1 mg SL NOW STA Stop: 07/18/22 10:30 Last Admin: 07/18/22 10:37 Dose: 1 mg Documented By: KTS Discharge Plan Visit Data Chief Complaint: Mental Health Evaluation Stated Complaint: DEPRESSED, MHE ED Provider: Tyrone Lilly Discharge Problem: Depression with suicidal ideation Patient Disposition: Admitted As Inpatient Discharge Instructions Interventions: ED Discharge Assessment Last Done: 07/18/22 16:58
[2022-07-18 10:47] LABS: Appearance Urine Clear (Clear); Bilirubin Urine Negative (Negative); Blood Urine Negative (Negative); Color Urine Yellow; Glucose Urine UA Trace (Negative); Ketones Urine Trace (Negative); Leukocyte Esterase Urine Negative (Negative); Nitrite Urine Negative (Negative); Protein Urine Negative (Negative); Specific Gravity Urine 1.027 (1.000-1.030); Urobilinogen Urine Negative (Negative); pH Urine 5.5 (4.5-7.5)
[2022-07-18 11:15] LABS: Amphetamines+Metham, Urine Neg (Neg); Barbiturates, Urine Neg (Neg); Benzodiazepine, Urine Neg (Neg); Cocaine, Urine Neg (Neg); MDMA (Ecstacy), Urine Neg (Neg); Methadone, Urine Neg (Neg); Opiate, Urine Neg (Neg); Phencyclidine, Urine Neg (Neg)
[2022-07-18 11:36] LABS: Basophils # (auto) 0.04 K/uL (0-0.2); Basophils % (auto) 0.7 %; Eosinophils # (auto) 0.05 K/uL (0-0.50); Eosinophils % (auto) 0.9 %; Hemoglobin 15.9 g/dl (14.0-18.0); Immature Granulocytes # (auto) 0.01 K/uL (0.01-0.20); Immature Granulocytes % (auto) 0.2 %; Lymphocytes # (auto) 1.18 K/uL (1.2-3.4); Lymphocytes % (auto) 21.6 %; Mean Corpuscular Hemoglobin 30.5 pg (25.0-34.0); Mean Corpuscular Hgb Conc 35.3 g/dL (32.0-36.0); Mean Corpuscular Volume 86.4 fL (80.0-100.0); Mean Platelet Volume 10.1 fL (9.4-12.4); Monocytes # (auto) 0.42 K/uL (0.11-0.59); Monocytes % (auto) 7.7 %; Neutrophils # (auto) 3.76 K/uL (1.40-6.50); Neutrophils % (auto) 68.9 %; Platelet Count 227 K/uL (130-400); RDW Coefficient of Variation 11.8 % (11.5-14.5); RDW Standard Deviation 37.2 fL (36.4-46.3); Red Blood Count 5.21 M/uL (4.70-6.10); White Blood Count 5.46 K/ul (4.8-10.8)
[2022-07-18 11:53] LABS: Albumin Globulin Ratio 1.6 (0.9-2); Albumin Level 4.5 gm/dl (3.4-5.0); Bilirubin,Total 0.7 mg/dl (0.2-1.0); Calcium 9.5 mg/dl (8.5-10.1); Creatinine Clr Calc Pharmacy 85.5 ml/min; Est GFR (African American) 85.2 ml/min; Est GFR (Non-African American) 73.5 ml/min; Globulin 2.8 gm/dl (2.5-4.0); Potassium 3.9 mmol/L (3.5-5.1); Total Protein 7.3 gm/dl (6.0-8.3)
[2022-07-18 12:06] LABS: Acetaminophen < 3 ug/ml (10-30); Salicylate < 3.0 mg/dl (3.0-30)
[2022-07-18] MEDS ORDERED: hydrOXYzine HCl 25 MG TAB PO PRN (17:24)
[2022-07-18] MEDS ORDERED: BISMUTH SUBSALICYLATE LIQD 236 ML PO PRN (17:24)
[2022-07-18] MEDS ORDERED: ACETAMINOPHEN 325 MG TAB PO PRN (17:24)
[2022-07-18] MEDS ORDERED: ALUMINUM/MAGNESIUM SUSP 30 ML UDC PO PRN (17:24)
[2022-07-18] MEDS ORDERED: MAGNESIUM HYDROXIDE SUSP 30 ML UDC PO PRN (17:24)
[2022-07-18] MEDS ORDERED: SODIUM CHLORIDE 0.65% NA SOLN 45 ML (OCEAN) PRN (17:24)
[2022-07-18] MEDS: POTASSIUM CITRATE 10 MEQ TAB PO SCH (21:54)
--- NOTE | 2022-07-19 07:56 | History & Physical ---
Date of Service July 19, 2022 Impression / Recommendations Impression Bewildering array of unusual symptoms that are difficult to match with commonly- recognized psychiatric syndromes. - The degree of mood lability vastly exceeds that of even ultrarapid-cycling bipolar conditions and the instantaneous shifting from appearing completely overwrought to eerily calm. - Some form of factitious disorder is an obvious possibility, but there's very clear external ("secondary") gain (though his excessively positive report of his response to lorazepam and his highly suggestive yet coy hinting about its name might be evidence of this, and it would be highly unusual for such marked s ymptoms resulting from internal ("primary") gain to appear this late in life or not to have come to attention prior to this. - For the same reason, a "cluster B" personality disorder might seem plausible except that it's difficult to envision symptoms of this severity not having attracted clinical attention before given how long he's lived in the area. - I'm curious about potential frontal lobe syndromes given the dramatic affect that's not clearly linked to thoughts or even mood as well as his imperviousness to pretty obvious social cues, the perseverative nature of his speech, apathy while voicing marked distress, and his odd locutions ("hallucinations while asleep" for "dreams". However, there's no evidence of neurological symptoms typically seen in such syndromes. - There's a distinct obsessive aspect to much of what he reports today and the way he reports it, so he may have a variant OCD (or OCPD). I'd be very interested to see anatomic and functional brain imaging, but that's not practicable while he's on suicide precautions (or, given the structure of this program, while he's admitted here at all). Overall, it seems safe to presume he probably has some form of anxiety disorder and some form of mood disorder. Given that one of the few psychiatric medications he reports being able to tolerate, venlafaxine, can be helpful for a broad range of anxiety disorders and depressive disorders coupled with the fact that he's currently on it, it would appear sensible to continue and perhaps increase this. I discussed at length a possible trial of aripiprazole but could not get him to say clearly whether he'd agree to that or not. (1) Depression with suicidal ideation: Plan Continue venlafaxine XR 225 mg daily, consider increase to 300 mg daily. Consider aripiprazole as thymoleptic if pt will agree without hedging. Avoid benzodiazepines if possible, as I don't share his confidence in their amazing healing gonzalez (nor is this reflected in last night's ED note). Inventory Assets Strengths: Reasonable intelligence. Safe housing. Stable resources. Needs: Impaired reasoning. Poor insight. Suicide Risk Level Suicide Risk Level: Low (q15 min observation checks) (readily contracts for safety while on the unit) Risk Factors Assessment Male: Yes : Yes Do You Have Access To A Gun?: No Protective Factors Assessment : Yes Employed: No (Retired from [employer]) Psychiatric History Identifying Data MACRINA GUSTAFSON is a 61-year-old M who currently lives in a house with his of 18 yr, has a history of "depression", and was admitted on 07/18/22 15:29 on a 201 voluntary commitment for suicidal ideation. Chief Complaint "I've been suicidal for years". History of Present Illness 61 y/o man who came to the ED in marked distress reporting recent exacerbation of his decades-long suicidality. He describes that as always severe and has difficulty what was different yesterday. 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 Despite what would seem to be fairly clear resentments, he says his marriage is fairly happy and stress-free. He repeatedly ascribes his inability to have friends, pursue interests, or enjoy life to his depression while also saying he thinks the depression is caused by such things. He actually at first denied a history of depression before reporting unrelenting suicidality for many years. When he reported that he "was in therapy" for years in his 20's or 30's, he struggled to report the reason for being in therapy or what form the therapy took. He says he's "been on Effexor for at least 30 years" after failed trials of paroxetine and sertraline, which he says induced "extreme panic". (While Effexor was approved in 1992, pt says he's only ever taken capsules. Effexor XR was approved March 1997). Although he says he doesn't "think it's done much", he is surprised at being asked why he remained on it for decades. He denies suicide attempts. His suicidal thoughts take the form of ruminating about driving into things while driving or of jumping off of bridges. While he describes this as "suicidal", he doesn't really voice any wish to be and seems to find the thoughts frightening. He appears more to be describing intrusive, highly repetitive, thoughts of things he might do or could do. He also finds himself ruminatively worrying about the consequences of such acts (e.g., when thinking of driving into an oncoming truck he becomes preoccupied with the various and extensive adverse effects on the tow truck driver, his family, responders, onlookers, and so on). Pt was chatting cheerfully with peers prior to the assessment and began the assessment in the same vein. However, when he mentioned his he abruptly appeared overwhelmed with distress, sobbing so much that he was unable to speak comprehensibly. When he started talking about work, his affect abruptly reverted to the unremarkable, almost placid, demeanor with which he began the assessment. Similar unusually abrupt shifts in affect occurred throughout the assessment. Several times this changed more than once within one sentence while remaining on the same topic. I detected no clear association between these affective shifts and the content of his speech. His speech is very markedly overinclusive of circumstantial detail, providing in response to straightforward questions ("when was that?") vast amounts of detail while also very often not providing even indirect answers to those questions. This doesn't present as scripted, or even as desperation to unburden himself of things never before revealed. Indeed, these meanderings are often mundane and tedious. It's more as if he has difficulty distinguishing the quotidian from the significant. Pt presents several bewildering complaints that are very unusual in my experience. One is his report that he's plagued by hallucinations "during sleep". After clarifying that he really means during sleep and not during awakenings, I told him that "we call those 'dreams'". He immediately changed terminology and started referring to "vivid and distressing dreams". (He also seemed a bit put out when I declined to ask about the content of his dreams.) He presents a curious mix of concern about and disregard of problems he brings up. For example, he says "lots of people have said" that he should have a sleep study. After eventually ascertaining that he hasn't had one, I asked if he'd considered it (no) and why not (because he didn't see much of a problem and wasn't interested). When I tried to move to a different topic, he blurted out that his says he snores "a lot" but that he doesn't know if he does. When I reacted in a noncommittal fashion, he asked if I thought he should have one. On further questioning, he says he's never considered mentioning this to any of his physicians ever. When I told him that he might want to consider talking to his PCP about this after discharge he seemed annoyed that we can't do sleep studies on the inpatient unit. He is noticeably unobservant of social cues. For example, my indicating the assessment was at an end by various usual means, even saying "I won't be able to order any of the things we've talked about until I can get to the computer in my office" or "it's time now for you to go out to the group room" elicited no response. I had to say "stand up now and walk behind me then go through this door right here" to get a (still delayed and uncertain) response. He denies falls, gait instability, or anosmia. Pt reports that "whatever they gave" him in the ED last night "was amazing - I felt completely normal for thd first time in years; it's like some sort of switch was thrown". He struggles to name that drug - "maybe it started with 'a' or something?" (ED note says he "was given some Ativan with mild improvement".) I pointed out that "aripiprazole might offer a possibility of some rapid improvement in mood stability" he responded that he thinks "Abilify has a bad reputation" and again mentioned "attaboy? add-a-bin... I just can't remember". Past Psychiatric History Previous Psych History: Denies previous admissions. Had "therapy" of unknown type for unknown reasons 30-40 years ago. Reports having been on venlafaxine XR longer than it's been on the market, though with no very clear benefit. Current Psychiatric Diagnosis: Unknown Outpatient Services: Medication prescribed by PCP Previous Psych Admissions: Denies Do You Have Access To A Gun?: No History of Previous Suicide Attempt: No Allergies Allergy/AdvReac Type Severity Reaction Status Date / Time codeine AdvReac Intermediate nausea Verified 11/28/20 09:49 Beef Containing Products AdvReac Verified 11/28/20 09:49 beef derived (bovine) AdvReac Verified 11/28/20 09:49 Home Medications Medication Instructions Recorded Confirmed Type atorvastatin 40 mg tablet 40 mg PO DAILY 11/13/20 07/18/22 History potassium citrate 10 mEq (1,080 10 meq PO HS 11/13/20 07/18/22 History mg) tablet,extended release venlafaxine 75 mg capsule,extended 225 mg PO DAILY 11/13/20 07/18/22 History release 24 hr finasteride 5 mg tablet 5 mg PO DAILY 07/18/22 07/18/22 History Family History Family History of: Depression and Suicide Attempts Alcohol History Hx of Alcohol Use Over the Past 12 Months: No AUDIT Total Score: 0 Smoking Use Have You Smoked or Used Tobacco Products in the Last 30 Days: No Smoking Status: Never smoker Substance History Hx of Prescription Med Misuse Over the Past 12 Months: No Hx of Over the Counter Med Misuse Over the Past 12 Months: No Hx of Inhalent Misuse Over the Past 12 Months: No Hx of Organic Substance Use Over the Past 12 Months: No Hx of Illegal Substances/Street Drug Use Over Past 12 Months: No Problems as a Result of Past Substance Use: None Identified Personal History Living Arrangements: Home Beliefs That Will Affect Care: None Patient History Medical History Abdominal pain Hypercholesterolemia Surgical History No pertinent past surgical history Family History Father Prostate cancer Hypertension Heart disease Uncle Prostate cancer Grandmother (Paternal) Hypertension Brother Diabetes Sister Diabetes Social History Smoking Status: Never smoker Hx Alcohol Use: No Hx Substance Use: No Preferred Language: Italian Communication Ability: Effective Sql [employer] Required: No Beliefs That Will Affect Care: None marital status: Current Living Situation: Spouse Feels Safe at Home: Hesitant to Answer Gender Identity: Male Assistive Devices: None Physical Exam Psychiatric: Orientation: alert and oriented x 3 Apperance: appropriately dressed, appropriately groomed and appeared stated age Eye Contact: good eye contact Motor Behavior: steady gait and station Speech: normal rate/rhythm/volume of speech Affect: + labile affect (to an impressive degree) Mood: + depressed mood and + anxious mood Thought Process: + circumstantial thought process and + tangential thought process Suicidal Thoughts: denies suicidal plan and denies suicidal intent; + reports suicidal thoughts Homicidal Thoughts: denies homicidal thoughts Hallucinations: no auditory hallucinations and no visual hallucinations Cognition: recent memory grossly intact and remote memory grossly intact Estimated Intelligence: average estimated intelligence Insight: + impaired insight Judgment: + limited judgement Vital Signs (Past 24 Hours): Last Vital Signs Temp 36.8 C 07/19/22 06:43 Pulse 76 07/19/22 06:43 Resp 16 07/19/22 06:43 BP 119/72 07/19/22 06:43 Pulse Ox 98 07/18/22 17:00 O2 Del Method 07/18/22 17:00 Exam Statement: A physical exam was performed in the ED for the purposes of medical clearance. I accept that physical as correct and adequate for the purposes of the inpatient physical exam. Results & Data ([facility]) Laboratory Results Laboratory Results - last 24 hr 07/18/22 07/18/22 07/18/22 10: 10: 10:41 WBC RBC Hgb Hct MCV MCH MCHC RDW Std Deviation RDW Coeff of Ling Plt Count MPV Immature Gran % (Auto) Neut % (Auto) Lymph % (Auto) [place] % (Auto) Eos % (Auto) Baso % (Auto) Neut # (Auto) Lymph # (Auto) [place] # (Auto) Eos # (Auto) Baso # (Auto) Immature Gran # (Auto) Sodium Potassium Chloride Carbon Dioxide Anion Gap BUN Creatinine Est Cr Clr Drug Dosing Est GFR ( Amer) Est GFR (Non-Af Amer) BUN/Creatinine Ratio Glucose Calcium Total Bilirubin AST ALT Alkaline Phosphatase Total Protein Albumin Globulin Albumin/Globulin Ratio TSH Urine Color Yellow Urine Appearance Clear Urine pH 5.5 Ur Specific [place] 1.027 Urine Protein Negative Urine Glucose (UA) Trace H Urine Ketones Trace H Urine Blood Negative Urine Nitrite Negative Urine Bilirubin Negative Urine Urobilinogen Negative Ur Leukocyte Esterase Negative Salicylates Urine Opiates Screen Neg Ur Methadone, Qual Neg Acetaminophen Urine Barbiturates Neg Ur Phencyclidine (PCP) Neg U Amphetamin/Meth Scrn Neg MDMA (Ecstasy) Screen Neg U Benzodiazepines Scrn Neg Ur Cocaine Metabolite Neg U Marijuana (THC) Screen Neg Ethyl Alcohol mg/dL SARS-CoV-2, RNA, NAAT NEGATIVE 07/18/22 07/18/22 07/18/22 11:18 11:18 11:18 WBC 5.46 RBC 5.21 Hgb 15.9 Hct 45.0 MCV 86.4 MCH 30.5 MCHC 35.3 RDW Std Deviation 37.2 RDW Coeff of Ling 11.8 Plt Count 227 MPV 10.1 Immature Gran % (Auto) 0.2 Neut % (Auto) 68.9 Lymph % (Auto) 21.6 [place] % (Auto) 7.7 Eos % (Auto) 0.9 Baso % (Auto) 0.7 Neut # (Auto) 3.76 Lymph # (Auto) 1.18 L [place] # (Auto) 0.42 Eos # (Auto) 0.05 Baso # (Auto) 0.04 Immature Gran # (Auto) 0.01 Sodium 138 Potassium 3.9 Chloride 107 Carbon Dioxide 26 Anion Gap 5 BUN 15 Creatinine 1.07 Est Cr Clr Drug Dosing 85.5 Est GFR ( Amer) 85.2 Est GFR (Non-Af Amer) 73.5 BUN/Creatinine Ratio 14.0 Glucose 92 Calcium 9.5 Total Bilirubin 0.7 AST 19 ALT 38 Alkaline Phosphatase 124 H Total Protein 7.3 Albumin 4.5 Globulin 2.8 Albumin/Globulin Ratio 1.6 TSH 1.280 Urine Color Urine Appearance Urine pH Ur Specific [place] Urine Protein Urine Glucose (UA) Urine Ketones Urine Blood Urine Nitrite Urine Bilirubin Urine Urobilinogen Ur Leukocyte Esterase Salicylates Urine Opiates Screen Ur Methadone, Qual Acetaminophen Urine Barbiturates Ur Phencyclidine (PCP) U Amphetamin/Meth Scrn MDMA (Ecstasy) Screen U Benzodiazepines Scrn Ur Cocaine Metabolite U Marijuana (THC) Screen Ethyl Alcohol mg/dL SARS-CoV-2, RNA, NAAT 07/18/22 07/18/22 11:18 11:18 WBC RBC Hgb Hct MCV MCH MCHC RDW Std Deviation RDW Coeff of Ling Plt Count MPV Immature Gran % (Auto) Neut % (Auto) Lymph % (Auto) [place] % (Auto) Eos % (Auto) Baso % (Auto) Neut # (Auto) Lymph # (Auto) [place] # (Auto) Eos # (Auto) Baso # (Auto) Immature Gran # (Auto) Sodium Potassium Chloride Carbon Dioxide Anion Gap BUN Creatinine Est Cr Clr Drug Dosing Est GFR ( Amer) Est GFR (Non-Af Amer) BUN/Creatinine Ratio Glucose Calcium Total Bilirubin AST ALT Alkaline Phosphatase Total Protein Albumin Globulin Albumin/Globulin Ratio TSH Urine Color Urine Appearance Urine pH Ur Specific [place] Urine Protein Urine Glucose (UA) Urine Ketones Urine Blood Urine Nitrite Urine Bilirubin Urine Urobilinogen Ur Leukocyte Esterase Salicylates < 3.0 L Urine Opiates Screen Ur Methadone, Qual Acetaminophen < 3 L Urine Barbiturates Ur Phencyclidine (PCP) U Amphetamin/Meth Scrn MDMA (Ecstasy) Screen U Benzodiazepines Scrn Ur Cocaine Metabolite U Marijuana (THC) Screen Ethyl Alcohol mg/dL < 10.0 SARS-CoV-2, RNA, NAAT Current Inpatient Medications Current Inpatient Medications: Current Inpatient Medications Acetaminophen (Acetaminophen 325 Mg Tab) 650 mg PO Q4H PRN PRN Reason: Headache or Minor Fever Stop: 08/17/22 17:23 Al Hydrox/Mg Hydrox/Simethicone (Aluminum/Magnesium Susp 30 Ml Udc) 30 ml PO Q4H PRN PRN Reason: GI Upset Stop: 08/17/22 17:23 Bismuth Subsalicylate (Bismuth Subsalicylate Liqd 236 Ml) 15 ml PO PRN PRN PRN Reason: Loose Stool Stop: 08/17/22 17:23 Hydroxyzine HCl (Hydroxyzine Hcl 25 Mg Tab) 50 mg PO HSZ PRN PRN Reason: Insomnia Stop: 08/17/22 17:23 Hydroxyzine HCl (Hydroxyzine Hcl 25 Mg Tab) 25 mg PO Q4H PRN PRN Reason: Anxiety Stop: 08/17/22 17:23 Magnesium Hydroxide (Magnesium Hydroxide Susp 30 Ml Udc) 30 ml PO DAILY PRN PRN Reason: Constipation Stop: 08/17/22 17:23 Potassium Citrate (Potassium Citrate 10 Meq Tab) 10 meq PO HS BUD Stop: 08/17/22 21:59 Last Admin: 07/18/22 21:54 Dose: 10 meq Sodium Chloride (Sodium Chloride 0.65% Na Soln 45 Ml ([place])) 1 - 2 sprays NA PRN PRN PRN Reason: Nasal Dryness/Congestion Stop: 08/17/22 17:23
[2022-07-19] MEDS: POTASSIUM CITRATE 10 MEQ TAB PO SCH (22:21)
[2022-07-19] MEDS: hydrOXYzine HCl 25 MG TAB PO PRN (23:23)
[2022-07-20] MEDS: hydrOXYzine HCl 25 MG TAB PO PRN (00:20)
[2022-07-20] MEDS ORDERED: FINASTERIDE 5 MG TAB PO SCH (09:00)
[2022-07-20] MEDS ORDERED: VENLAFAXINE HCL XR 75 MG CAPXR PO SCH (09:00)
[2022-07-20] MEDS ORDERED: ATORVASTATIN 40 MG TAB PO SCH (09:00)
--- NOTE | 2022-07-20 12:49 | Discharge Summary ---
Date of Service July 20, 2022 History of Present Illness 61 y/o man who came to the ED in marked distress reporting recent exacerbation of his decades-long suicidality. He describes that as always severe and has difficulty what was different yesterday. 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 Despite what would seem to be fairly clear resentments, he says his marriage is fairly happy and stress-free. He repeatedly ascribes his inability to have friends, pursue interests, or enjoy life to his depression while also saying he thinks the depression is caused by such things. He actually at first denied a history of depression before reporting unrelenting suicidality for many years. When he reported that he "was in therapy" for years in his 20's or 30's, he struggled to report the reason for being in therapy or what form the therapy took. He says he's "been on Effexor for at least 30 years" after failed trials of paroxetine and sertraline, which he says induced "extreme panic". (While Effexor was approved in 1992, pt says he's only ever taken capsules. Effexor XR was approved March 1997). Although he says he doesn't "think it's done much", he is surprised at being asked why he remained on it for decades. He denies suicide attempts. His suicidal thoughts take the form of ruminating about driving into things while driving or of jumping off of bridges. While he describes this as "suicidal", he doesn't really voice any wish to be and seems to find the thoughts frightening. He appears more to be describing intrusive, highly repetitive, thoughts of things he might do or could do. He also finds himself ruminatively worrying about the consequences of such acts (e.g., when thinking of driving into an oncoming truck he becomes preoccupied with the various and extensive adverse effects on the lift truck mechanic, his family, responders, onlookers, and so on). Pt was chatting cheerfully with peers prior to the assessment and began the assessment in the same vein. However, when he mentioned his he abruptly appeared overwhelmed with distress, sobbing so much that he was unable to speak comprehensibly. When he started talking about work, his affect abruptly reverted to the unremarkable, almost placid, demeanor with which he began the assessment. Similar unusually abrupt shifts in affect occurred throughout the assessment. Several times this changed more than once within one sentence while remaining on the same topic. I detected no clear association between these affective shifts and the content of his speech. His speech is very markedly overinclusive of circumstantial detail, providing in response to straightforward questions ("when was that?") vast amounts of detail while also very often not providing even indirect answers to those questions. This doesn't present as scripted, or even as desperation to unburden himself of things never before revealed. Indeed, these meanderings are often mundane and tedious. It's more as if he has difficulty distinguishing the quotidian from the significant. Pt presents several bewildering complaints that are very unusual in my experience. One is his report that he's plagued by hallucinations "during sleep ". After clarifying that he really means during sleep and not during awakenings, I told him that "we call those 'dreams'". He immediately changed terminology and started referring to "vivid and distressing dreams". (He also seemed a bit put out when I declined to ask about the content of his dreams.) He presents a curious mix of concern about and disregard of problems he brings up. For example, he says "lots of people have said" that he should have a sleep study. After eventually ascertaining that he hasn't had one, I asked if he'd considered it (no) and why not (because he didn't see much of a problem and wasn't interested). When I tried to move to a different topic, he blurted out that his says he snores "a lot" but that he doesn't know if he does. When I reacted in a noncommittal fashion, he asked if I thought he should have one. On further questioning, he says he's never considered mentioning this to any of his physicians ever. When I told him that he might want to consider talking to his PCP about this after discharge he seemed annoyed that we can't do sleep studies on the inpatient unit. He is noticeably unobservant of social cues. For example, my indicating the assessment was at an end by various usual means, even saying "I won't be able to order any of the things we've talked about until I can get to the computer in my office" or "it's time now for you to go out to the group room" elicited no response. I had to say "stand up now and walk behind me then go through this door right here" to get a (still delayed and uncertain) response. He denies falls, gait instability, or anosmia. Pt reports that "whatever they gave" him in the ED last night "was amazing - I felt completely normal for thd first time in years; it's like some sort of switch was thrown". He struggles to name that drug - "maybe it started with 'a' or something?" (ED note says he "was given some Ativan with mild improvement".) I pointed out that "aripiprazole might offer a possibility of some rapid improvement in mood stability" he responded that he thinks "Abilify has a bad reputation" and again mentioned "attaboy? add-a-bin... I just can't remember". Physical Exam Psychiatric Orientation: alert and oriented x 3 Apperance: appropriately dressed, appropriately groomed and appeared stated age Eye Contact: good eye contact Motor Behavior: steady gait and station Speech: normal rate/rhythm/volume of speech Affect: + constricted affect; no labile affect Mood: + depressed mood and + anxious mood Thought Process: + circumstantial thought process and + tangential thought process Suicidal Thoughts: denies suicidal thoughts, denies suicidal plan and denies suicidal intent Homicidal Thoughts: denies homicidal thoughts Hallucinations: no auditory hallucinations and no visual hallucinations Cognition: recent memory grossly intact and remote memory grossly intact Estimated Intelligence: average estimated intelligence Insight: + impaired insight Judgment: + limited judgement Vital Signs (Past 24 Hours) Last Vital Signs Temp 36.6 C 07/20/22 12:29 Pulse 86 07/20/22 12:29 Resp 16 07/20/22 12:29 BP 132/91 07/20/22 12:29 Pulse Ox 98 07/20/22 12:29 O2 Del Method 07/18/22 17:00 A physical exam was performed in the for the purposes of medical clearance. I accepted that physical as correct and adequate for the purposes of the inpatient physical exam. Principal Diagnosis Recurrent Major Depression, Severe, with Anxious Distres Psychiatric Data See daily stay summary. In short, safety was maintained and the patient was cooperative with care. Medication changes included were discussed at length but were not made. I held an extended discharge planning meeting with him and safety plan was completed prior to discharge. Day of Discharge Assessment Pt exhibited a substantial degree of improvement overnight, with great reduction in the number, duration, and severity of episodes of affective dyscontrol. Although medication changes (increase of venlafaxine XR to 300 mg daily and addition of aripiprazole 2 mg at bedtime) were discussed exhaustively both on the day prior to discharge and today, he didn't end up feeling quite comfortable enough to proceed with those changes. We eventually negotiated that he would leave with prescriptions that would allow him to make the recommended changes but, because he has a supply of 75 mg venlafaxine XR would not force him to do so or to continue with a change that made him uncomfortable. He voices strong interest in seeing a counseling specialist for medication assessment and management and in pursuing CBT. He voices readiness for discharge. He notes improvement in mood and deny thoughts to harm self or others. Thoughts are organized and they are improved from admission. There is no evidence of psychosis. He agrees to take mediations as prescribed and keep follow-up appointments. He is stable for discharge to outpatient level of care. 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 Risk Factors Assessment Male: Yes : Yes Do You Have Access To A Gun?: No Protective Factors Assessment : Yes Employed: No (Retired from [employer]) Discharge Data Lab Results 07/18/22 07/18/22 07/18/22 10:23 10: 10:41 WBC RBC Hgb Hct MCV MCH MCHC RDW Std Deviation RDW Coeff of Ling Plt Count MPV Immature Gran % (Auto) Neut % (Auto) Lymph % (Auto) [place] % (Auto) Eos % (Auto) Baso % (Auto) Neut # (Auto) Lymph # (Auto) [place] # (Auto) Eos # (Auto) Baso # (Auto) Immature Gran # (Auto) Sodium Potassium Chloride Carbon Dioxide Anion Gap BUN Creatinine Est Cr Clr Drug Dosing Est GFR ( Amer) Est GFR (Non-Af Amer) BUN/Creatinine Ratio Glucose Calcium Total Bilirubin AST ALT Alkaline Phosphatase Total Protein Albumin Globulin Albumin/Globulin Ratio TSH Urine Color Yellow Urine Appearance Clear Urine pH 5.5 Ur Specific [place] 1.027 Urine Protein Negative Urine Glucose (UA) Trace H Urine Ketones Trace H Urine Blood Negative Urine Nitrite Negative Urine Bilirubin Negative Urine Urobilinogen Negative Ur Leukocyte Esterase Negative Salicylates Urine Opiates Screen Neg Ur Methadone, Qual Neg Acetaminophen Urine Barbiturates Neg Ur Phencyclidine (PCP) Neg U Amphetamin/Meth Scrn Neg MDMA (Ecstasy) Screen Neg U Benzodiazepines Scrn Neg Ur Cocaine Metabolite Neg U Marijuana (THC) Screen Neg Ethyl Alcohol mg/dL SARS-CoV-2, RNA, NAAT NEGATIVE 07/18/22 07/18/22 07/18/22 11:18 11:18 11:18 WBC 5.46 RBC 5.21 Hgb 15.9 Hct 45.0 MCV 86.4 MCH 30.5 MCHC 35.3 RDW Std Deviation 37.2 RDW Coeff of Ling 11.8 Plt Count 227 MPV 10.1 Immature Gran % (Auto) 0.2 Neut % (Auto) 68.9 Lymph % (Auto) 21.6 [place] % (Auto) 7.7 Eos % (Auto) 0.9 Baso % (Auto) 0.7 Neut # (Auto) 3.76 Lymph # (Auto) 1.18 L [place] # (Auto) 0.42 Eos # (Auto) 0.05 Baso # (Auto) 0.04 Immature Gran # (Auto) 0.01 Sodium 138 Potassium 3.9 Chloride 107 Carbon Dioxide 26 Anion Gap 5 BUN 15 Creatinine 1.07 Est Cr Clr Drug Dosing 85.5 Est GFR ( Amer) 85.2 Est GFR (Non-Af Amer) 73.5 BUN/Creatinine Ratio 14.0 Glucose 92 Calcium 9.5 Total Bilirubin 0.7 AST 19 ALT 38 Alkaline Phosphatase 124 H Total Protein 7.3 Albumin 4.5 Globulin 2.8 Albumin/Globulin Ratio 1.6 TSH 1.280 Urine Color Urine Appearance Urine pH Ur Specific [place] Urine Protein Urine Glucose (UA) Urine Ketones Urine Blood Urine Nitrite Urine Bilirubin Urine Urobilinogen Ur Leukocyte Esterase Salicylates Urine Opiates Screen Ur Methadone, Qual Acetaminophen Urine Barbiturates Ur Phencyclidine (PCP) U Amphetamin/Meth Scrn MDMA (Ecstasy) Screen U Benzodiazepines Scrn Ur Cocaine Metabolite U Marijuana (THC) Screen Ethyl Alcohol mg/dL SARS-CoV-2, RNA, NAAT 07/18/22 07/18/22 11:18 11:18 WBC RBC Hgb Hct MCV MCH MCHC RDW Std Deviation RDW Coeff of Ling Plt Count MPV Immature Gran % (Auto) Neut % (Auto) Lymph % (Auto) [place] % (Auto) Eos % (Auto) Baso % (Auto) Neut # (Auto) Lymph # (Auto) [place] # (Auto) Eos # (Auto) Baso # (Auto) Immature Gran # (Auto) Sodium Potassium Chloride Carbon Dioxide Anion Gap BUN Creatinine Est Cr Clr Drug Dosing Est GFR ( Amer) Est GFR (Non-Af Amer) BUN/Creatinine Ratio Glucose Calcium Total Bilirubin AST ALT Alkaline Phosphatase Total Protein Albumin Globulin Albumin/Globulin Ratio TSH Urine Color Urine Appearance Urine pH Ur Specific [place] Urine Protein Urine Glucose (UA) Urine Ketones Urine Blood Urine Nitrite Urine Bilirubin Urine Urobilinogen Ur Leukocyte Esterase Salicylates < 3.0 L Urine Opiates Screen Ur Methadone, Qual Acetaminophen < 3 L Urine Barbiturates Ur Phencyclidine (PCP) U Amphetamin/Meth Scrn MDMA (Ecstasy) Screen U Benzodiazepines Scrn Ur Cocaine Metabolite U Marijuana (THC) Screen Ethyl Alcohol mg/dL < 10.0 SARS-CoV-2, RNA, NAAT Hospital Course (1) Depression with suicidal ideation: Plan 07/21/22: Pt requests discharge so he can go watch the Super Bowl at his [id number] house, denying any suicidal thoughts at all. He wants to discuss medication options in exhaustive detail and brings up "Ativan" by name today. 07/20/22: Continue venlafaxine XR 225 mg daily, consider increase to 300 mg daily. Consider aripiprazole as thymoleptic if pt will agree without hedging. Avoid benzodiazepines if possible, as I don't share his confidence in their a [facility] (nor is this reflected in last night's ED note). Mental Health & Subst Abuse Tx Psychiatrist Name of Psychiatrist: Chacorta Yeh Psychiatrist's Time of Appointment with Psychiatrist: please contact to establish services Psychiatric Appointment Comment: [address] [place], [place] Therapist Name of Therapist: [facility] Microwavejordandaniela Zhao (referral has been sent) Therapist's Time of Therapist Appointment: please contact to establish services Therapy Appointment Comment: [address], [place] [address] Therapist Release of Information: Obtained, Reviewed and Signed Post Discharge Appointments Primary Care Physician Name Of Family Doctor/PCP: Abebe Peralta Primary Care Time of Appointment with PCP: please resume regular scheduling Provider Appointment Comment: [address], [place] [address] Primary Care Release of Information: Obtained, Reviewed and Signed Contact Information Discharge Discharge Address: [address], [place] [address] Discharge Plan Discharge Items Patient Disposition: Home - Self-Care Reason For Visit: MDD Discharge Diagnosis: Recurrent Major Depression with Anxious Distress Anxiety Disorder NOS with obsessive-compulsive features Condition on Discharge: Good Activity: Resume your previous activity Non-emergency contact: Primary Care Provider and Psychiatrist Call non-emergency contact if: you have any medication questions and your symptoms worsen Follow-up/Referrals: Harjeet Peralta MD [Primary Care Provider] - Diet: Regular Addtl Attending Provider Instructions: SPECIAL CARE INSTRUCTIONS: 1. Follow through with your scheduled aftercare appointments. If unable to keep an appointment, please call to reschedule. 2. Take your medication only as prescribed. Medication should not be changed or stopped without the approval of your doctor. In the event of worsening symptoms or concerns about side effects, contact your doctor immediately. 3. Utilize new healthy coping skills, anger management skills, and stress management skills learned during your hospitalization. Journal feelings and process them with a support person. Identify stressors or situations that may result in relapse, deterioration or inappropriate behaviors and develop a plan to deal with those issues. 4. If your coping skills are ineffective and you are in crisis, contact your outpatient providers for direction. If unable to reach your providers, please call the [facility] CRISIS LINE AT , go to the [facility] walk-in center at [address], [address], [place], or go to the closest Emergency Room. 5. Avoid alcohol and un-prescribed drugs. 6. You have been provided with the Mental Health Advance Directives Pamphlet for your review. 7. Your condition is stable for discharge to outpatient level of care, but recovery is an ongoing process. Ifthoughts to harm yourself or others return, follow the safety plan developed during your stay. Planning for a safe return home includes securing weapons. Our treatment team recommends weaponsbe removed from the home until your outpatient provider reassesses your progress. In rare cases where the items themselvescannot be removed, guns and ammunitionshould be secured separatelyand keys stored by a reliable personoutside of the home. If you were admitted on an involuntary commitment, the police or other legal authorities may be involved in this process. AFTERCARE APPOINTMENTS: * Please call your insurance company prior to your scheduled appointment to confirm your aftercare providers are covered. Take your insurance information to your appointments. WHO TO CALL AND WHEN: Medical Emergencies: For questions or emergencies related to your hospital stay, please contact the Inpatient Behavioral Health Unit at [phone]. A billing clinician is on-call 29/12 for the Behavioral Health Unit for emergencies At any time you feel your situation is an emergency, you may also call 911 immediately. Pending Studies at Discharge: No Stand-Alone Forms: [facility] Medications and DC Order Prescriptions: New venlafaxine 150 mg capsule,extended release 24hr 300 mg PO DAILY 30 Days Qty: 60 0RF aripiprazole 2 mg tablet 2 mg PO HS 30 Days Qty: 30 0RF Continued finasteride 5 mg tablet 5 mg PO DAILY atorvastatin 40 mg tablet 40 mg PO DAILY potassium citrate 10 mEq (1,080 mg) tablet extended release 10 meq PO HS Discontinued venlafaxine 75 mg capsule,extended release 24hr 225 mg PO DAILY Discharge Orders: Discharge Order (Routine); Ordered 07/20/22 Ordered By: Maynor Quezada Admission Data Admit Date/Time: 07/18/22 15:29 Attending Provider: Maynor Quezada Admit Provider: Rox Angulo Primary Care Provider: Harjeet Peralta Other Interventions: Discharge Summary Assessment (RN) Last Done: 07/20/22 12:29 PSY Interdisciplinary Discharge Planning Last Done: 07/20/22 12:30 Coding Level of Care Code 41303 D/C day mgmt > 30 min Diagnoses Depression with suicidal ideation F32.A; R45.851 Time Spent (min) 70
== END 2022-07-20 13:15 | disposition home or self-care (01) | DRG 885 ==
LOC: ED 10:03 → 3S 15:29